=== PATIENT | male | born 1965 | race Caucasian/White ===

== ENCOUNTER 2017-06-08 02:18 | Inpatient (IN) | payer MEDICARE, SELFPAY ==
[2017-06-08] VITALS (16 sets, daily range): BP systolic 117–155; BP diastolic 73–98; PULSE 91–107; RESP 12–20; TEMP 36.6–37.6; O2SAT 93–98; BMI 26.2
--- NOTE | 2017-06-08 02:37 | EKG12_ITS ---
Test Reason : Blood Pressure : / mmHG Vent. Rate : 104 BPM Atrial Rate : 104 BPM P-R Int : 148 ms QRS Dur : 106 ms QT Int : 344 ms P-R-T Axes : 045 051 038 degrees QTc Int : 452 ms Sinus tachycardia Nonspecific T wave abnormality Confirmed by ESAU LEIGH, ANGELICA ([id number]), staff editor ALMA BAKER ([id number] on 06/10/2017 1:17:27 PM Referred By: Confirmed By:ANGELICA CIFUENTES MD
--- NOTE | 2017-06-08 02:38 | CT_ITS ---
STUDY: CTA CHEST REASON FOR EXAM: Male, 51 years old. Chest pain since 10:00 PM. Mediport was placed on 06/07/2017 and the patient has been off anticoagulants for 2 days due to port insertion. History of recent PE. 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 Hypertension. Elevated white blood cell count today. RADIATION DOSAGE (If Supplied By Facility): CTDIvol = ( 19.64 ) mGy, DLP = ( 2018.20 ) mGycm TECHNIQUE: The examination was performed with the intravenous administration of 75ML ml of Isovue 370 contrast material. Post-processing of the angiographic images was performed, with multiplanar reformation and 3D reconstruction. Individualized dose optimization techniques were used for this CT. COMPARISON: Chest x-ray 06/07/2017. CT scan chest 05/29/2017. CTA chest 04/27/2017. FINDINGS: There is a right internal jugular Port-A-Cath with its tip in the SVC-right atrial junction. There is subcutaneous fat infiltration in the right anterior chest wall and lower right side of the neck, presumably related to recent port placement. Normal enhancement of the main pulmonary artery and right and left pulmonary arteries. Normal enhancement of the bilateral peripheral pulmonary arteries. There is no demonstrated pulmonary embolism. Normal thoracic aorta and visualized great vessels. There is no demonstrated aortic dissection. Normal heart and pericardium. Normal mediastinum. Normal hilar regions. Normal visualized trachea.. There are large pleural effusions bilaterally, which are worsened compared with the May [address] scan. There is overlying compression atelectasis in the lower lobes bilaterally. There are infiltrates and atelectasis in the right middle lobe and right upper lobe which are likely represent pneumonia. Bronchial wall thickening is similar regions. . Appearance of the right upper and right middle lobe infiltrates is is not significantly different from May 29 exam. Normal chest wall structures. There are degenerative changes of thoracic spine. Abdominal findings will be discussed in CT scan abdomen and pelvis report. CT/CTA Chest W/WO Contrast IMPRESSION: Normal CTA chest examination, without a demonstrated pulmonary embolism or arterial dissection. Port-A-Cath is in adequate position, with its tip in the SVC-right atrial junction. Large bilateral pleural effusions, with interval worsening from May 29 exam, and with overlying atelectasis in the lower lobes. Right upper lobe and right middle lobe pneumonia and atelectasis, not significant change from May 29 exam. Electronically Signed: Eulalio Souza MD at 5:21 EST , Service support ,
--- NOTE | 2017-06-08 02:38 | CT_ITS ---
STUDY: CT ABDOMEN AND PELVIS WITH CONTRAST REASON FOR EXAM: Male, 51 years old. Chest pain since 10:00 PM. Mediport was placed on 06/07/2017 and the patient has been off anticoagulants for 2 days due to port insertion. History of recent PE. 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 Hypertension. Elevated white blood cell count today. RADIATION DOSAGE (If Supplied By Facility): CTDIvol = ( 19.64 ) mGy, DLP = ( 2018.20 ) mGycm TECHNIQUE: Transaxial images were obtained from the dome of the diaphragm to the symphysis pubis without oral contrast. 75ML ml of Isovue 370 contrast was administered. Sagittal and coronal images were reconstructed. Individualized dose optimization techniques were used for this CT. COMPARISON: CTA chest done today. CT scan abdomen and pelvis 05/29/2017. FINDINGS: Lower lung field findings were discussed in CTA chest report... There is moderate abdominal and pelvic ascites, slightly worsened, particularly in the pelvis, compared to May 29 exam. There is a a percutaneous biliary drain which extends through the right lobe of the liver, with its curled tip in the second segment of the duodenal sweep. There is associated pneumobilia. Liver is otherwise normal in appearance. There is high attenuation material within the gallbladder, consistent with excreted contrast. Normal spleen. Normal pancreas. Normal bilateral adrenal glands. Normal right kidney. Contrast enhancement of the left renal cortex is slightly heterogeneous, particularly within the upper pole of the left kidney. Findings nonspecific, however, it may be associated with pyelonephritis. There is no demonstrated hydronephrosis or urinary calculus. Normal visualized stomach. Normal small intestine. Normal colon. The appendix is visualized medial to the cecum on axial images 69-77 and it appears normal.. There is minimal atherosclerotic calcification of the abdominal aorta, without a demonstrated aneurysm. Normal inferior vena cava. Normal retroperitoneum. Normal urinary bladder. Normal abdominal wall. There is a small umbilical hernia containing fat, but no bowel. CT/Abdomen/Pelvis W IV Cont ONLY IMPRESSION: Mild heterogeneity of cortical contrast enhancement in the upper pole of the left kidney is a nonspecific finding, possibly representing pyelonephritis. Suggest laboratory correlation. No demonstrated urinary calculi or hydronephrosis. Percutaneous biliary drain/biliary stent is in adequate position. No bile duct dilatation. Moderate amount of ascites, slightly worsened from previous CT scan. No evidence for diverticulitis or appendicitis. Electronically Signed: Eulalio Souza MD at 5:33 EST , Service support ,
[2017-06-08] MEDS: 0.9% Normal Saline 1,000 ML 150 ML IV (02:46)
[2017-06-08 03:10] LABS: Absolute Lymphocyte Count 0.38 X10^3/ul (0.83-4.51); Absolute Neutrophil Count 10.1 X10^3/uL (2.0-7.7); Basophil# 0.01 X10^3/uL; Basophil% 0.1 % (0-1); Eosinophil# 0.04 X10^3/uL; Eosinophils% 0.3 % (0-5); Hematocrit 30.3 % (40-54); Hemoglobin 9.8 g/dl (13.0-16.5); International Normalized Ratio 1.1; Lymphocyte # 0.38 X10^3/ul (4.0); Lymphocyte % 3.3 % (19-41); Mean Corp Hgb Conc 32.3 g/gl (32-36); Mean Corpuscular Hgb 28.2 pg (27.0-32.0); Mean Corpuscular Volume 87.3 fL (80-94); Mean Platelet Vol. 10.6 fl (6.2-12.0); Monocyte# 1.04 X10^3/uL; Monocyte% 8.9 % (0-10); Neutrophil # 10.13 X10^3/uL (2.7-7.7); Neutrophil % 87.1 % (47-70); Platelet Count 218 K/mm3 (150-450); Prothrombin Time (Protime)PT. 13.9 SECONDS (11.7-14.9); RBC Distribution Width CV 16.1 % (11.6-14.6); RBC Distribution Width SD 51.4 fl (35.1-43.9); Red Blood Count 3.47 M/mm3 (4.6-6.2); White Blood Count 11.6 K/mm3 (4.4-11.0)
[2017-06-08 03:11] LABS: Differential Indicated SCAN CRITERIA MET; POSITIVE COUNT NO; POSITIVE DIFFERENTIAL YES; POSITIVE MORPHOLOGY NO; Partial Thromboplast Time 34.9 Seconds (24.1-36.2)
[2017-06-08 03:19] LABS: AST(SGOT) 18 U/L (15-37); Alanine Aminotransfer ALT/SGPT 38 U/L (12-78); Albumin, Serum 2.8 g/dL (3.4-5.0); Alkaline Phosphatase 414 U/L (45-117); Anion Gap 10 (5-15); BUN 9 mg/dL (7-18); BUN/Creat Ratio 9.8 RATIO (10-20); Bilirubin, Direct 0.47 mg/dL (0.00-0.30); Calcium,Total 8.6 mg/dL (8.5-10.1); Chloride 99 mmol/L (98-107); Creatinine, Serum 0.92 mg/dL (0.70-1.30); EST Glomerular Filtration Rate 92 mL/min (>60); Est Glom Filt Rate - Afr Amer 111 mL/min (>60); Globulin 3.7 g/dL (2.2-4.2); Glucose 166 mg/dL (70-110); Lipase 844 U/L (73-393); Potassium 3.9 mmol/L (3.5-5.1); Protein, Total 6.5 g/dL (6.4-8.2); Sodium Level 134 mmol/L (136-145)
[2017-06-08] MEDS: fentaNYL 100 MCG/2 ML Ampul 50 MCG IV (04:15)
--- NOTE | 2017-06-08 06:08 | ED.VISSUMM ---
- ER Visit Summary Date of Service: 06/08/17 Chief Complaint: Chest pain, abdominal pain History of Present Illness: The patient is a 51 M sudden chest upper abdominal pain at 10 PM this evening. Currently symptoms in the abdomen. History of recurrent oropharyngeal cancer 2 weeks ago. Recently discharged from [facility] with a percutaneous biliary tube placement. An obstructive process causing jaundice. Spouse states attempted ERCP done at [facility], unable due to finding cancer lesions in his esophagus. Percutaneous tube was placed. Denies any fevers. Patient status post Mediport placement yesterday here by Dr. Olguin. History of PE, currently off his Lovenox, to be restarted tomorrow. Call the on-call oncologist, symptom here for evaluation. States symptoms are not severe currently however it can get really severe any time. No vomiting or diarrhea. Denies urinary symptoms. Spouse does state he feels he is having increased distention in his abdomen. Physical Examination: General: Alert and oriented ?3, mild distress HEENT: Normocephalic, atraumatic. Moist mucosa membranes Neck: supple, nontender. Cardiovascular: Regular rate and rhythm, no murmurs. Right upper chest MediPort: Clean, dry, intact. Respiratory: Normal breath sounds, symmetric, no distress Abdomen: Soft, nontender, right abdomen: Percutaneous tube clean, dry, intact. Extremities: Nontender, no edema, pulses intact ?4 Neuro: no focal neurological deficits. Skin: Mild jaundice Test Results: EKG sinus rate of 104, no ST or T-wave changes. Troponin negative. Abdominal labs, WBC 11.6. Hemoglobin 9.8. Creatinine 0.92. Lipase 844. Liver enzymes normal. CTA chest: Increased pleural effusion. No PE. Stable infiltrates as from previous. CT abdomen pelvis: Increased ascites. Biliary tube in place. Inflammation around left kidney. Emergency Department Course and Treatment: Patient vitals stable, complains of both chest pain and abdominal pain. Chest pain has resolved. Patient off Lovenox for Mediport placement. Percutaneous drainage tube placed at [facility] recently. With his symptoms, discuss reimaging to rule out PE versus tube dislodgment. Scans noted increasing pleural effusion. He has had 2 thoracentesis 2-3 weeks ago. Complains of dyspnea, however pulse ox is stable currently. CT abdomen no increased ascites. Percutaneous tube is in place. Noted some inflammation around the left kidney. No urine symptoms. I did send for a UA for further evaluation. Abdominal labs did note elevated lipase of 844. No inflammation around the pancreas on CT. Cardiac workup negative. I discussed with oncology, Dr. Munoz, knows the patient well. States from the recent attempted ERCP, there is a new primary lesion in the esophagus. Patient's chemotherapy will need to be changed. Initial plan will be Saturday, however she states this can be done as an inpatient here if patient stays longer. She requests him staying here to hospitalist service with pulmonary consult for evaluation of pleural effusions. Due to being Saturday morning, unclear if thoracentesis can be performed, currently he is off Lovenox to be restarted today. Reevaluation patient feels more comfortable. Currently hospitalist is on page for discussion for admission. I did speak with hospitalist, Dr. Crawford, Dr. Carlson, request I speak with Dr. Bull about possible Pleuridex cath. He was in surgery. Updated on recurrent pleural effusions. He agrees to see the patient for evaluation as an inpatient. Treatment Plan: [] Disposition: Admission Impression: 1. Abdominal pain 2. Abdominal ascites 3. Bilateral pleural effusions 4. Recurrent oral pharyngeal cancer This note was generated with [employer] dictation software. It may contain incorrect words, spelling, and punctuation that were not noted in review of the chart prior to signing ED Disposition - Plan for ED Patient: Disposition: Acute Care Hospital [facility] Chief Complaint: Chest Pain Diagnosis: Abdominal pain, Ascites, Bilateral pleural effusion, Recurrent cancer Referrals: Rhoda Madera MD [Primary Care Provider] -
[2017-06-08 06:13] LABS: Mucous, Urine 0 SEEN /hpf (<or=2+); Red Blood Cells-Urine 0 SEEN /hpf (0-5); White Blood Cells 0 SEEN /hpf (0-5)
[2017-06-08 06:14] LABS: Color, Urine Straw (Yellow); Glucose, Dipstick Normal (Normal); Ketone-Dipstick Negative (Negative); Leukocyte Esterase-Dipstick Negative /ul (Negative); Nitrite-Dipstick Negative (Negative); Occult Blood-Urine Negative /ul (Negative); Protein-Dipstick Negative (Negative); Specific Gravity, Urine 1.005 (1.002-1.030); Urine Bilirubin Dipstick Negative (Negative); Urine Clarity Clear (Clear); Urine Urobilinogen Normal (Normal)
--- NOTE | 2017-06-08 06:25 | ED.DCSUM_ITS ---
- ER Visit Summary Date of Service: 06/08/17 Chief Complaint: Chest pain, abdominal pain History of Present Illness: The patient is a 51 M sudden chest upper abdominal pain at 10 PM this evening. Currently symptoms in the abdomen. History of recurrent oropharyngeal cancer 2 weeks ago. Recently discharged from [facility] with a percutaneous biliary tube placement. An obstructive process causing jaundice. Spouse states attempted ERCP done at [facility], unable due to finding cancer lesions in his esophagus. Percutaneous tube was placed. Denies any fevers. Patient status post Mediport placement yesterday here by Dr. Olguin. History of PE, currently off his Lovenox, to be restarted tomorrow. Call the on -call oncologist, symptom here for evaluation. States symptoms are not severe currently however it can get really severe any time. No vomiting or diarrhea. Denies urinary symptoms. Spouse does state he feels he is having increased distention in his abdomen. Physical Examination: General: Alert and oriented ?3, mild distress HEENT: Normocephalic, atraumatic. Moist mucosa membranes Neck: supple, nontender. Cardiovascular: Regular rate and rhythm, no murmurs. Right upper chest MediPort : Clean, dry, intact. Respiratory: Normal breath sounds, symmetric, no distress Abdomen: Soft, nontender, right abdomen: Percutaneous tube clean, dry, intact. Extremities: Nontender, no edema, pulses intact ?4 Neuro: no focal neurological deficits. Skin: Mild jaundice Test Results: EKG sinus rate of 104, no ST or T-wave changes. Troponin negative. Abdominal labs, WBC 11.6. Hemoglobin 9.8. Creatinine 0.92. Lipase 844. Liver enzymes normal. CTA chest: Increased pleural effusion. No PE. Stable infiltrates as from previous. CT abdomen pelvis: Increased ascites. Biliary tube in place. Inflammation around left kidney. Emergency Department Course and Treatment: Patient vitals stable, complains of both chest pain and abdominal pain. Chest pain has resolved. Patient off Lovenox for Mediport placement. Percutaneous drainage tube placed at [facility] recently. With his symptoms, discuss reimaging to rule out PE versus tube dislodgment. Scans noted increasing pleural effusion. He has had 2 thoracentesis 2-3 weeks ago. Complains of dyspnea, however pulse ox is stable currently. CT abdomen no increased ascites. Percutaneous tube is in place. Noted some inflammation around the left kidney. No urine symptoms. I did send for a UA for further evaluation. Abdominal labs did note elevated lipase of 844. No inflammation around the pancreas on CT. Cardiac workup negative. I discussed with oncology, Dr. Munoz, knows the patient well. States from the recent attempted ERCP, there is a new primary lesion in the esophagus. Patient's chemotherapy will need to be changed. Initial plan will be Saturday, however she states this can be done as an inpatient here if patient stays longer. She requests him staying here to hospitalist service with pulmonary consult for evaluation of pleural effusions. Due to being Saturday morning, unclear if thoracentesis can be performed, currently he is off Lovenox to be restarted today. Reevaluation patient feels more comfortable. Currently hospitalist is on page for discussion for admission. I did speak with hospitalist, Dr. Crawford, Dr. Carlson, request I speak with Dr. Bull about possible Pleuridex cath. He was in surgery. Updated on recurrent pleural effusions. He agrees to see the patient for evaluation as an inpatient. Treatment Plan: [] Disposition: Admission Impression: 1. Abdominal pain 2. Abdominal ascites 3. Bilateral pleural effusions 4. Recurrent oral pharyngeal cancer This note was generated with [employer] dictation software. It may contain incorrect words, spelling, and punctuation that were not noted in review of the chart prior to signing ED Disposition - Plan for ED Patient: Disposition: Acute Care Hospital [facility] Chief Complaint: Chest Pain Diagnosis: Abdominal pain, Ascites, Bilateral pleural effusion, Recurrent cancer Referrals: Rhoda Madera MD [Primary Care Provider] -
[2017-06-08 06:28] LABS: Bacteria RARE /hpf (None Seen); Squamous Epithelial Cells - UA 0-5 SEEN /hpf (0-5)
--- NOTE | 2017-06-08 07:40 | NURSING ---
called in with concerns that pt has been forgetful. wanted staff to know that pt has not been eating and does not remember all medical hx and facts, symptoms. Concerned about j-tube and treatments that effect liver. requests updates regarding care when she is unable to be here. verified with pt who reports me and my morphine brain has trouble remembering, and would like staff to keep Cici updated and in decision making process. called PCU to update nurse with family concerns
--- NOTE | 2017-06-08 07:53 | PCM.HP.STD ---
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 Comment: from head and neck CA at the base of the tongue (3) Normochromic normocytic anemia Status: Chronic Comment: secondary to malignancy (4) Hyponatremia Status: Acute (5) Biliary stasis Status: Chronic Comment: has a KOBE drain (6) Abdominal pain Status: Acute (7) Ascites Status: Chronic (8) Bilateral pleural effusion Status: Chronic Comment: malignant, recurrent (9) Pneumonia Status: Acute Qualifiers: Pneumonia type: aspiration pneumonia (10) Bipolar affective disorder Status: Chronic (11) Diabetes mellitus, type II Status: Chronic (12) Hypothyroidism Status: Chronic Qualifiers: History of Present Illness Date of Admission: 06/08/17 Chief Complaint: upper abdominal pain The patient is a 51 year old M with a past medical history of squamous cell carcinoma at the base of the tongue with recent recurrence in the esophagus, bipolar disorder, hypertension, recurrent bilateral pleural effusions(malignant), ascites(KOBE drain recently placed at [facility]), dysphagia, PE's(on Lovenox), and DM II who presented to the ER at [facility] on 06/08/17 with a complaint of upper abdominal pain and lower chest pain. He did not take his temperature at home but felt very cold and needed several blankets to keep him warm. Vital signs at presentation to the emergency room are 99.6 temp, heart rate 107, blood pressure 146/96, respiratory rate 20 and he was 94-95% saturated on room air. White blood cell count is 11.6 with left shift. Hemoglobin is 9.8 and in April 2017 it was 12.8. Platelets are within normal limits. Sodium was low at 134 but the remainder of the electrolytes are normal. BUN is 9 with a creatinine of 0.92. Blood sugar is 166. UA was negative for infection. He was recently at [facility] for an ERCP however endoscopy revealed metastatic cancer to the esophagus and ERCP was aborted. He has a KOBE drain in the abdomen which has a very small amount of dark brown fluid. His states that this is what has been there for 3 days. She does state his abdomen is is slightly smaller than it was prior to the trip to [facility]. He had a port placed in the right subclavian by Dr. Olguin on 06/07/2017. CT scan of the abdomen showed a percutaneous biliary drain/biliary stent in good position with no bile duct dilatation. There was a moderate amount of ascites, slightly worsened from previous CT scan at [facility]. CTA of the chest showed no pulmonary embolism but showed large pleural effusions bilaterally, worse than a CT scan done on May 29. There was compression atelectasis in both lower lobes and infiltrates in the right middle lobe and the right upper lobe likely secondary to aspiration. He is being admitted to the hospital for probable ASP PNA, and large recurrent BL effusions, likely malignant. Thoracentesis in April had atypical squamous cells. 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 (Chronic) from head and neck CA at the base of the tongue Normochromic normocytic anemia (Chronic) secondary to malignancy Biliary stasis (Chronic) has a KOBE drain Diabetes mellitus, type II (Chronic) Bipolar affective disorder (Chronic) Hypothyroidism (Chronic) Allergies No Known Allergies Allergy (Verified 06/08/17 02:29) Home Medications: Ambulatory Orders Medication Instructions Recorded Citalopram [Celexa] 20 mg PO DAILY 09/20/14 Levothyroxine [Synthroid] 125 mcg PO DAILY 09/20/14 Quetiapine Fumarate [Seroquel] 200 mg PO QHS 08/15/16 Oxcarbazepine [Trileptal] 300 mg PO BID 02/14/17 Amlodipine [Norvasc] 10 mg PO DAILY #30 tab 05/01/17 Dexamethasone [Decadron] 4 mg PO DAILY@0800 #30 tab 05/14/17 Bisacodyl [Dulcolax] 10 mg RECTAL DAILY PRN PRN 05/29/17 Docusate Sodium [Stool Softener] 100 mg PO BID PRN PRN 05/29/17 Enoxaparin [Lovenox] 80 mg SQ BID 05/29/17 Lactulose [Constulose] 10 gm PO TID 06/03/17 Lidocaine/Prilocaine 30 gm TP DAILY PRN PRN #1 cream..g. 06/05/17 [Lidocaine-Prilocaine Cream] Wade Citrate [Wade] 5 ml PO DAILY 06/06/17 Oxycodone HCl/Acetaminophen 1 - 2 tab PO Q4H PRN PRN #30 tab 06/07/17 [Percocet 5/325] Paliperidone [Paliperidone ER] 1.5 mg PO DAILY 06/08/17 Pantoprazole Sodium [Protonix] 40 mg PO DAILY 06/08/17 Surgical History: - - Port placement, Neck Bx, T+A, Inguinal hernia repair, PEG tube. Psychiatric History: Bipolar Lives: Spouse/ Significant Other Smoking Status: Former smoker Tobacco Use: Non-smoker Alcohol: Rare Drugs: None - *Family History Maternal Family History: Family History (Last Reviewed 06/09/17 @ 23:04 by Arabella Carlson DO) Grandfather Heart disease Brother CVA (cerebral vascular accident) Mother Hypertension History Items: Heart Disease, Hypertension, No pertinent history Paternal Family History: Family History (Last Reviewed 06/09/17 @ 23:04 by Arabella Carlson DO) Grandfather Heart disease Brother CVA (cerebral vascular accident) Mother Hypertension History Items: Heart Disease, Hypertension, Stroke Review of Systems Constitutional: Reports: Chills Eyes: Denies: Blurred vision, Redness HEENT: Reports: Difficulty Swallowing. Denies: Head Aches, Sinus Congestion, Sinus Drainage Cardiovascular: Reports: Chest Pain - lower chest BL and upper abd, Orthopnea. Denies: Light Headedness, Palpitations, Paroxysmal Noc. Dyspnea, Syncope Respiratory: Reports: Cough - thick yellow, Shortness of breath upon exertion, Sputum production. Denies: Hemoptysis, Wheezing Gastrointestinal: Denies: Abdominal Pain, Diarrhea, Nausea, Vomiting Genitourinary: Denies: Dysuria Musculoskeletal: Denies: Joint Pain, Joint Tenderness Skin: Denies: Jaundice, Wounds Neurological: Denies: Slurred speech, Confusion, Difficulty swallowing, Focal weakness, Numbness, Tingling, Seizures Psychiatric: Reports: - - bipolar disorder Endocrine: Reports: - - hypothyroidism Hematologic/ Lymphatic: Reports: Hx of blood clot VTE Information - Inpt Only VTE Present on Admission: No VTE Mechan Device Prophylaxis: SCD's, Knee High CHRISTIANO Hose Reason prophylaxis not ordered:: Treatment Not Indicated - on full dose Lovenox Patient Problems: Active and Suspected Problems (Last Reviewed 06/09/17 @ 08:45 by Segun Ramirez MD) Abdominal pain (Acute) Hyponatremia (Acute) - Physical Exam General: Alert, Oriented x3, Cooperative HEENT: Atraumatic, PERRLA, EOMI, Normocephalic Oral: Moist Mucosa Neck: Supple, No JVD, No Nodes, No Nuchal Rigidity, Trachea Midline Lungs: No rhonchi, No wheeze, No rales, Diminished, - - not tachypneic and no conversational dyspnea, able to speak in full sentences Cardiovascular: Regular rate, Regular Rhythm, Normal S1, Normal S2, No murmurs, No Ectopic Activity, No rub noted, No Gallop Abdomen: Bowel Sounds Present, Soft, Distended, Tender - in the upper abd BL with no guarding., - - No pitting edema in the flanks Extremities: No clubbing, No cyanosis, Capillary Refill Less than 3 Seconds, Edema - mild distal LE's Skin: No rashes, No breakdown, - - port is present in the R upper chest Musculoskeletal: No Muscle Wasting Lymphatic: - - No supraclavicular adenopathy Neurological: Cranial nerves II-XII grossly intact, Neuro grossly intact Psych/Mental Status: Normal Affect, Appropriate Vital Signs Temp Pulse Resp BP Pulse Ox 99.6 F H 96 14 155/96 H 94 06/08/17 02:24 06/08/17 07:28 06/08/17 07:28 06/08/17 07:28 06/08/17 07:28 Oxygen Delivery Method Room Air Assessment/Plan Active and Suspected Problems (Last Reviewed 06/09/17 @ 08:45 by Segun Ramirez MD) Abdominal pain (Acute) Hyponatremia (Acute) Vancomycin and cefepime day #2 Impressions 1. Aspiration PNA - Continue 2. dysphagia 3. H&N squamous CA at the base of the tongue diagnosed and treated in 2015 and nowq with recurrence in the esophagus 4. ascites - suspect malignant. Had a drain recently put in at [facility] but there is no significant drainage and the ABD is more distended and tense today 5. Recurrent BL pleural effusions, R>L. Atypical squamous cells in the first thoracentesis. Has had [address] Ramirez is on consult and is planning a pleurx catheter Saturday.......should probably have a diagnostic and therapeutic paracentesis and a PEG as well. 6. BPD - complicates care, management, prognosis and recovery 7. anemia of malignancy 8. former smoker 9. Hyponatremia 10. DM II 11. Hypothyroidism As above Will need to consult Dr. Galvin who is following this pt and he is going to be getting more chemo which may be started in the hospital [facility] and keep NPO until he is seen by [facility] IV hydration and DC if the ST starts a diet to prevent increasing pleural effusions or ascites. May need a diagnostic paracentesis if this has not already been done and may also need to have another PEG if he is unable to tolerate a diet due to dysphagia and chemo Will consult Dr. Ramirez for a pleurx catheter to control the pleural effusion Code Visit Inpatient E&M: 69627 Subs Hosp L3
--- NOTE | 2017-06-08 08:03 | HP.PCM_ITS ---
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 Comment: from head and neck CA at the base of the tongue (3) Normochromic normocytic anemia Status: Chronic Comment: secondary to malignancy (4) Hyponatremia Status: Acute (5) Biliary stasis Status: Chronic Comment: has a KOBE drain (6) Abdominal pain Status: Acute (7) Ascites Status: Chronic (8) Bilateral pleural effusion Status: Chronic Comment: malignant, recurrent (9) Pneumonia Status: Acute Qualifiers: Pneumonia type: aspiration pneumonia (10) Bipolar affective disorder Status: Chronic (11) Diabetes mellitus, type II Status: Chronic (12) Hypothyroidism Status: Chronic Qualifiers: History of Present Illness Date of Admission: 06/08/17 Chief Complaint: upper abdominal pain The patient is a 51 year old M with a past medical history of squamous cell carcinoma at the base of the tongue with recent recurrence in the esophagus , bipolar disorder, hypertension, recurrent bilateral pleural effusions( malignant), ascites(KOBE drain recently placed at [facility]), dysphagia, PE's(on Lovenox ), and DM II who presented to the ER at [facility] on 06/08/17 with a complaint of upper abdominal pain and lower chest pain. He did not take his temperature at home but felt very cold and needed several blankets to keep him warm. Vital signs at presentation to the emergency room are 99.6 temp, heart rate 107, blood pressure 146/96, respiratory rate 20 and he was 94-95% saturated on room air. White blood cell count is 11.6 with left shift. Hemoglobin is 9.8 and in April 2017 it was 12.8. Platelets are within normal limits. Sodium was low at 134 but the remainder of the electrolytes are normal. BUN is 9 with a creatinine of 0.92. Blood sugar is 166. UA was negative for infection. He was recently at [facility] for an ERCP however endoscopy revealed metastatic cancer to the esophagus and ERCP was aborted. He has a KOBE drain in the abdomen which has a very small amount of dark brown fluid. His states that this is what has been there for 3 days. She does state his abdomen is is slightly smaller than it was prior to the trip to [facility]. He had a port placed in the right subclavian by Dr. Olguin on 06/07/2017. CT scan of the abdomen showed a percutaneous biliary drain/biliary stent in good position with no bile duct dilatation. There was a moderate amount of ascites, slightly worsened from previous CT scan at [facility]. CTA of the chest showed no pulmonary embolism but showed large pleural effusions bilaterally, worse than a CT scan done on May 29. There was compression atelectasis in both lower lobes and infiltrates in the right middle lobe and the right upper lobe likely secondary to aspiration. He is being admitted to the hospital for probable ASP PNA, and large recurrent BL effusions, likely malignant. Thoracentesis in April had atypical squamous cells. 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 (Chronic) from head and neck CA at the base of the tongue Normochromic normocytic anemia (Chronic) secondary to malignancy Biliary stasis (Chronic) has a KOBE drain Diabetes mellitus, type II (Chronic) Bipolar affective disorder (Chronic) Hypothyroidism (Chronic) Allergies No Known Allergies Allergy (Verified 06/08/17 02:29) Home Medications: Ambulatory Orders Medication Instructions Recorded Citalopram [Celexa] 20 mg PO DAILY 09/20/14 Levothyroxine [Synthroid] 125 mcg PO DAILY 09/20/14 Quetiapine Fumarate [Seroquel] 200 mg PO QHS 08/15/16 Oxcarbazepine [Trileptal] 300 mg PO BID 02/14/17 Amlodipine [Norvasc] 10 mg PO DAILY #30 tab 05/01/17 Dexamethasone [Decadron] 4 mg PO DAILY@0800 #30 tab 05/14/17 Bisacodyl [Dulcolax] 10 mg RECTAL DAILY PRN PRN 05/29/17 Docusate Sodium [Stool Softener] 100 mg PO BID PRN PRN 05/29/17 Enoxaparin [Lovenox] 80 mg SQ BID 05/29/17 Lactulose [Constulose] 10 gm PO TID 06/03/17 Lidocaine/Prilocaine 30 gm TP DAILY PRN PRN #1 cream..g. 06/05/17 [Lidocaine-Prilocaine Cream] [place] Citrate [[place]] 5 ml PO DAILY 06/06/17 Oxycodone HCl/Acetaminophen 1 - 2 tab PO Q4H PRN PRN #30 tab 06/07/17 [Percocet 5/325] Paliperidone [Paliperidone ER] 1.5 mg PO DAILY 06/08/17 Pantoprazole Sodium [Protonix] 40 mg PO DAILY 06/08/17 Surgical History: - - Port placement, Neck Bx, T+A, Inguinal hernia repair, PEG tube. Psychiatric History: Bipolar Lives: Spouse/ Significant Other Smoking Status: Former smoker Tobacco Use: Non-smoker Alcohol: Rare Drugs: None - *Family History Maternal Family History: Family History (Last Reviewed 06/09/17 @ 23:04 by Arabella Carlson DO) Grandfather Heart disease Brother CVA (cerebral vascular accident) Mother Hypertension History Items: Heart Disease, Hypertension, No pertinent history Paternal Family History: Family History (Last Reviewed 06/09/17 @ 23:04 by Arabella Carlson DO) Grandfather Heart disease Brother CVA (cerebral vascular accident) Mother Hypertension History Items: Heart Disease, Hypertension, Stroke Review of Systems Constitutional: Reports: Chills Eyes: Denies: Blurred vision, Redness HEENT: Reports: Difficulty Swallowing. Denies: Head Aches, Sinus Congestion, Sinus Drainage Cardiovascular: Reports: Chest Pain - lower chest BL and upper abd, Orthopnea. Denies: Light Headedness, Palpitations, Paroxysmal Noc. Dyspnea, Syncope Respiratory: Reports: Cough - thick yellow, Shortness of breath upon exertion, Sputum production. Denies: Hemoptysis, Wheezing Gastrointestinal: Denies: Abdominal Pain, Diarrhea, Nausea, Vomiting Genitourinary: Denies: Dysuria Musculoskeletal: Denies: Joint Pain, Joint Tenderness Skin: Denies: Jaundice, Wounds Neurological: Denies: Slurred speech, Confusion, Difficulty swallowing, Focal weakness, Numbness, Tingling, Seizures Psychiatric: Reports: - - bipolar disorder Endocrine: Reports: - - hypothyroidism Hematologic/ Lymphatic: Reports: Hx of blood clot VTE Information - Inpt Only VTE Present on Admission: No VTE Mechan Device Prophylaxis: SCD's, Knee High CHRISTIANO Hose Reason prophylaxis not ordered:: Treatment Not Indicated - on full dose Lovenox Patient Problems: Active and Suspected Problems (Last Reviewed 06/09/17 @ 08:45 by Segun Ramirez MD) Abdominal pain (Acute) Hyponatremia (Acute) - Physical Exam General: Alert, Oriented x3, Cooperative HEENT: Atraumatic, PERRLA, EOMI, Normocephalic Oral: Moist Mucosa Neck: Supple, No JVD, No Nodes, No Nuchal Rigidity, Trachea Midline Lungs: No rhonchi, No wheeze, No rales, Diminished, - - not tachypneic and no conversational dyspnea, able to speak in full sentences Cardiovascular: Regular rate, Regular Rhythm, Normal S1, Normal S2, No murmurs, No Ectopic Activity, No rub noted, No Gallop Abdomen: Bowel Sounds Present, Soft, Distended, Tender - in the upper abd BL with no guarding., - - No pitting edema in the flanks Extremities: No clubbing, No cyanosis, Capillary Refill Less than 3 Seconds, Edema - mild distal LE's Skin: No rashes, No breakdown, - - port is present in the R upper chest Musculoskeletal: No Muscle Wasting Lymphatic: - - No supraclavicular adenopathy Neurological: Cranial nerves II-XII grossly intact, Neuro grossly intact Psych/Mental Status: Normal Affect, Appropriate Vital Signs Temp Pulse Resp BP Pulse Ox 99.6 F H 96 14 155/96 H 94 06/08/17 02:24 06/08/17 07:28 06/08/17 07:28 06/08/17 07:28 06/08/17 07:28 Oxygen Delivery Method Room Air Assessment/Plan Active and Suspected Problems (Last Reviewed 06/09/17 @ 08:45 by Segun Ramirez MD) Abdominal pain (Acute) Hyponatremia (Acute) Vancomycin and cefepime day #2 Impressions 1. Aspiration PNA - Continue 2. dysphagia 3. H&N squamous CA at the base of the tongue diagnosed and treated in 2015 and nowq with recurrence in the esophagus 4. ascites - suspect malignant. Had a drain recently put in at [facility] but there is no significant drainage and the ABD is more distended and tense today 5. Recurrent BL pleural effusions, R>L. Atypical squamous cells in the first thoracentesis. Has had [address] Ramirez is on consult and is planning a pleurx catheter Saturday.......should probably have a diagnostic and therapeutic paracentesis and a PEG as well. 6. BPD - complicates care, management, prognosis and recovery 7. anemia of malignancy 8. former smoker 9. Hyponatremia 10. DM II 11. Hypothyroidism As above Will need to consult Dr. Galvin who is following this pt and he is going to be getting more chemo which may be started in the hospital [facility] and keep NPO until he is seen by [facility] IV hydration and DC if the ST starts a diet to prevent increasing pleural effusions or ascites. May need a diagnostic paracentesis if this has not already been done and may also need to have another PEG if he is unable to tolerate a diet due to dysphagia and chemo Will consult Dr. Ramirez for a pleurx catheter to control the pleural effusion Code Visit Inpatient E&M: 19561 Subs Hosp L3
[2017-06-08] MEDS: Lactated Ringers 1,000 ML 75 ML IV ×2 (09:01→23:01)
[2017-06-08] MEDS: Albuterol 2.5 MG/3 ML VIAL.NEB. INHALATION (09:08)
[2017-06-08 09:19] LABS: Hemoglobin A1c 5.3 % (4.2-6.3)
--- NOTE | 2017-06-08 09:19 | NURSING ---
Checked clinical pharmacology on Intr[employer]-no information available for compatibility of LR and Cefepime. Keiry -pharmacist verified the two drugs are complatible
[2017-06-08] MEDS: Enoxaparin 80 MG/0.8 ML Syringe SC ×2 (11:08→23:01)
[2017-06-08] MEDS: Bumetanide 1 MG/4 ML Vial IV (11:09)
--- NOTE | 2017-06-08 12:56 | CASEMGMT ---
Face to Face with patient for initial transition planning/care coordination assessment. RN CM introduced self and role at [facility], pt voices understanding and consents to assessment at this time. Care providers, pharmacy, and demographics verified. See attached link. Advised pt to ask for CM if questions/concerns/needs arise, voices understanding. PLAN: Patient states he would like to return home, with family, upon discharge. Patient states he lives in a two-story home with first floor setup. He has never used home health services in the past. Patient states they now have someone coming into the home to help with cooking and cleaning. Patient states his works from home now. DME: Patient states he currently has walker, cane, wheelchair and bath chair.
[2017-06-08] MEDS: Ipratropium/Albuterol Sulfate 3 ML AMPUL.NEB INHALATION (13:15)
[2017-06-08] MEDS: OXcarbazepine 150 MG Tablet 300 MG PO (23:02)
[2017-06-08] MEDS: Lactulose 20 GM/30 ML UDC 10 GM PO (23:02)
[2017-06-08] MEDS: Lidocaine 5% Patch 2 PATCH TOPICAL (23:06)
[2017-06-08] MEDS: Ondansetron 4 MG/2 ML Vial IV (23:11)
[2017-06-08] MEDS: 0.9% NaCl Peripheral Flush Adult/Peds IV (23:11)
[2017-06-09] VITALS (13 sets, daily range): BP systolic 124–155; BP diastolic 87–94; PULSE 80–102; RESP 16–18; TEMP 36.5–36.7; O2SAT 94–99
[2017-06-09] MEDS: 0.9% NaCl Peripheral Flush Adult/Peds IV (04:52)
[2017-06-09] MEDS: Albuterol 2.5 MG/3 ML VIAL.NEB. INHALATION (05:14)
[2017-06-09] MEDS: Lactulose 20 GM/30 ML UDC 10 GM PO ×3 (05:28→21:47)
[2017-06-09] MEDS: Levothyroxine 125 MCG Tablet PO (05:28)
[2017-06-09 07:11] LABS: M R Staph aureus DNA By PCR Negative (Negative); Probe Check PASS; Specimen Processing Control PASS
[2017-06-09] MEDS: Enoxaparin 80 MG/0.8 ML Syringe SC ×2 (09:34→21:46)
[2017-06-09] MEDS: Lithium Carbonate 300mg Capsule 300 MG PO (09:34)
[2017-06-09] MEDS: Citalopram 20 MG Tablet PO (09:35)
[2017-06-09] MEDS: OXcarbazepine 150 MG Tablet 300 MG PO ×2 (09:35→21:46)
[2017-06-09] MEDS: amLODIPine 10 MG Tablet PO (09:35)
[2017-06-09] MEDS: Bumetanide 1 MG/4 ML Vial IV (09:36)
[2017-06-09] MEDS: Ipratropium/Albuterol Sulfate 3 ML AMPUL.NEB INHALATION ×2 (11:08→19:41)
--- NOTE | 2017-06-09 11:15 | CON.PCM_ITS ---
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 The patient was initially diagnosed and treated in 2014. He now returns with multiple issues including bilateral pleural effusions. He was admitted by the medicine service. Dr. Carlson's admission history of present illness notes: The patient is a 51 year old M with a past medical history of squamous cell carcinoma at the base of the tongue with recent recurrence in the esophagus , bipolar disorder, hypertension, recurrent bilateral pleural effusions( malignant), ascites(KOBE drain recently placed at [facility]), dysphagia, PE's(on Lovenox ), and DM II who presented to the ER at [facility] on 06/08/17 with a complaint of upper abdominal pain and lower chest pain. He did not take his temperature at home but felt very cold and needed several blankets to keep him warm. Vital signs at presentation to the emergency room are 99.6 temp, heart rate 107, blood pressure 146/96, respiratory rate 20 and he was 94-95% saturated on room air. White blood cell count is 11.6 with left shift. Hemoglobin is 9.8 and in April 2017 it was 12.8. Platelets are within normal limits. Sodium was low at 134 but the remainder of the electrolytes are normal. BUN is 9 with a creatinine of 0.92. Blood sugar is 166. UA was negative for infection. He was recently at [facility] for an ERCP however endoscopy revealed metastatic cancer to the esophagus and ERCP was aborted. He has a KOBE drain in the abdomen which has a very small amount of dark brown fluid. His states that this is what has been there for 3 days. She does state his abdomen is is slightly smaller than it was prior to the trip to [facility]. He had a port placed in the right subclavian by Dr. Olguin on 06/07/2017. CT scan of the abdomen showed a percutaneous biliary drain/biliary stent in good position with no bile duct dilatation. There was a moderate amount of ascites, slightly worsened from previous CT scan at [facility]. CTA of the chest showed no pulmonary embolism but showed large pleural effusions bilaterally, worse than a CT scan done on May 29. There was compression atelectasis in both lower lobes and infiltrates in the right middle lobe and the right upper lobe likely secondary to aspiration. He is being admitted to the hospital for probable ASP PNA, and large recurrent BL effusions, likely malignant. Thoracentesis in April had atypical squamous cells. He has had 2 right-sided thoracenteses every 2 weeks on average, draining over thousand cc. He has increasing shortness of breath area did I am consulted for placement of a right tunneled pleural/Pleurx catheter. additionally, he underwent EGD with PEG tube placement by Dr. Katelynn Molina in 2014 while he was initially treated for his squamous cell head and neck cancer. He is again having increasing dysphagia. It was asked if I could attempt to place a PEG tube. We will attempt PEG tube placement. The same time as right tunneled pleural catheter placement, but this may not be possible given the aborted ERCP attempt at [facility]. 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 (Chronic) from head and neck CA at the base of the tongue Normochromic normocytic anemia (Chronic) secondary to malignancy Biliary stasis (Chronic) has a KOBE drain Diabetes mellitus, type II (Chronic) Bipolar affective disorder (Chronic) Hypothyroidism (Chronic) Allergies No Known Allergies Allergy (Verified 06/08/17 02:29) Home Medications: Ambulatory Orders Medication Instructions Recorded Citalopram [Celexa] 20 mg PO DAILY 09/20/14 Levothyroxine [Synthroid] 125 mcg PO DAILY 09/20/14 Quetiapine Fumarate [Seroquel] 200 mg PO QHS 08/15/16 Oxcarbazepine [Trileptal] 300 mg PO BID 02/14/17 Amlodipine [Norvasc] 10 mg PO DAILY #30 tab 05/01/17 Dexamethasone [Decadron] 4 mg PO DAILY@0800 #30 tab 05/14/17 Bisacodyl [Dulcolax] 10 mg RECTAL DAILY PRN PRN 05/29/17 Docusate Sodium [Stool Softener] 100 mg PO BID PRN PRN 05/29/17 Enoxaparin [Lovenox] 80 mg SQ BID 05/29/17 Lactulose [Constulose] 10 gm PO TID 06/03/17 Lidocaine/Prilocaine 30 gm TP DAILY PRN PRN #1 cream..g. 06/05/17 [Lidocaine-Prilocaine Cream] [place] Citrate [[place]] 5 ml PO DAILY 06/06/17 Oxycodone HCl/Acetaminophen 1 - 2 tab PO Q4H PRN PRN #30 tab 06/07/17 [Percocet 5/325] Paliperidone [Paliperidone ER] 1.5 mg PO DAILY 06/08/17 Pantoprazole Sodium [Protonix] 40 mg PO DAILY 06/08/17 Surgical History: - - Port placement, Neck Bx, T+A, Inguinal hernia repair, PEG tube. Psychiatric History: Bipolar Smoking Status: Former smoker - *Family History Maternal Family History: Family History (Last Reviewed 06/09/17 @ 08:45 by Segun Ramirez MD) Grandfather Heart disease Brother CVA (cerebral vascular accident) Mother Hypertension History Items: Heart Disease, Hypertension, No pertinent history Paternal Family History: Family History (Last Reviewed 06/09/17 @ 08:45 by Segun Ramirez MD) Grandfather Heart disease Brother CVA (cerebral vascular accident) Mother Hypertension History Items: Heart Disease, Hypertension, Stroke Review of Systems Constitutional: Reports: Anorexia, Malaise, Fatigue. Denies: Chills, Fever, Weight Change HEENT: Reports: Difficulty Swallowing, Dysphasia. Denies: Head Aches, Sinus Congestion, Sinus Drainage Cardiovascular: Denies: Chest Pain, Palpitations Respiratory: Reports: Shortness of Breath, Shortness of breath upon exertion. Denies: Cough, Shortness of breath at rest, Sputum production Gastrointestinal: Denies: Abdominal Pain, Nausea, Vomiting Genitourinary: Denies: Dysuria Musculoskeletal: Denies: Joint Pain, Joint Tenderness Skin: Denies: Rash, Wounds Neurological: Denies: Numbness, Tingling, Focal weakness Psychiatric: Denies: Anxiety, Depression, Homicidal Ideations, Suicidal Ideations Hematologic/ Lymphatic: Denies: Easy Bruising, Easy Bleeding Patient Problems: Active and Suspected Problems (Last Reviewed 06/09/17 @ 08:45 by Segun Ramirez MD) Abdominal pain (Acute) Hyponatremia (Acute) - Physical Exam General: Alert, Oriented x3, Cooperative Lungs: Diminished - 5. Basilar right greater than left Abdomen: Bowel Sounds Present, Soft, Non Tender Vital Signs Temp Pulse Resp BP Pulse Ox 97.9 F 95 16 126/94 H 97 06/09/17 08:19 06/09/17 08:19 06/09/17 08:19 06/09/17 08:19 06/09/17 08:19 Oxygen Flow Rate 2 Oxygen Delivery Method Nasal Cannula Weight: 78.2 kg Body Mass Index (BMI) 26.2 Intake and Output for Last 24 Hours 06/07/17 06/08/17 06/09/17 23:59 23:59 23:59 Intake Total 1478 / 1478 1992 Output Total 810 / 810 275 / 275 Balance 668 / 668 1718 / 1718 Microbiology Past 72 Hours 06/08/17 09:20 Gram Stain - Final Sputum, Expectorated/Coughed 06/08/17 09:00 Respiratory Panel (PCR) - Final Mucosa - Nasopharyngeal 06/08/17 09:00 Legionella Antigen - Final Urine, Clean Catch 06/08/17 09:00 Streptococcus pneumoniae Antigen (M - Final Urine, Clean Catch Laboratory Tests Past 24 Hrs 06/09/17 05:30 MRSA (PCR) Negative Assessment/Plan Active and Suspected Problems (Last Reviewed 06/09/17 @ 08:45 by Segun Ramirez MD) Abdominal pain (Acute) Hyponatremia (Acute) advanced metastatic squamous cell carcinoma with bilateral pleural effusions, biliary obstruction with what appears to be a percutaneous biliary stent placed , dysphagia, Bilateral pleural effusions-on CT scan. The right side appears worse than the left side. This is the site that the patient's had 2 previous thoracenteses. We'll plan for a right sided tunneled pleural catheter/Pleurx catheter for palliative reasons. The patient understands the risks, benefits, possible complications and alternatives to planned procedure, and patient consents. We will hold Lovenox after midnight. 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 dysphagia-prior PEG tube placement-questionable esophageal involvement-we will plan for upper endoscopy and attempt PEG tube placement through the old PEG tube site. If there is a degree of tumor in the esophagus which is preventing EGD placement, then we will recommend interventional radiology placed a feeding tube through her old PEG site.
[2017-06-09] MEDS: Lactated Ringers 1,000 ML 75 ML IV (12:03)
--- NOTE | 2017-06-09 12:45 | PCM.PROGNOTE ---
Patient Problems: Active and Suspected Problems (Last Reviewed 06/09/17 @ 08:45 by Segun Ramirez MD) Abdominal pain (Acute) Hyponatremia (Acute) Subjective: Patient is a 51-year-old male with a past medical history of head and neck cancer at the base of the tongue treated in 2015 who now has a recurrence with metastasis to the esophagus. Admitted to the hospital with recurrent pleural effusions, right greater than left. Has had 2 thoracenteses. Now also has aspiration pneumonia. Dr. Ramirez has been consulted for a Pleurx catheter on the right and possible PEG tube so that he may stay nourished while undergoing chemotherapy. He has a hx of BPD and is very stable. He has a history of ascites and biliary stasis and was recently at [facility] for an ERCP. This was aborted due to recurrent CA with metastases to the esophagus. He now has a KOBE drain inserted in the abdomen to drain ascites. He is currently afebrile. Vital signs are stable. He is 95-97% saturated on a 2 L nasal cannula. He has been seen by speech therapy and was approved for a mechanical soft diet with regular/thin liquids. Sputum Gram stain has 4+ white blood cells. Legionella and streptococcal antigens in the urine were negative. Respiratory panel was negative and the sputum culture is pending. Urine culture is no growth. - Physical Exam General: Alert, Oriented x3, Cooperative, No apparent distress HEENT: Atraumatic, Normocephalic Oral: Moist Mucosa Neck: Supple, No JVD Lungs: No wheeze, Diminished, - - coarse crackles on the right anteriorly today Cardiovascular: Regular rate, Regular Rhythm, No murmurs, No rub noted, No Gallop Abdomen: Bowel Sounds Present, Non Tender, Distended - the abd is more distended today and more tense. It is no tender to palapation. there is no pitting in the flanks Extremities: No clubbing, No cyanosis, Edema Skin: No rashes Neurological: Cranial nerves II-XII grossly intact, Neuro grossly intact Vital Signs Temp Pulse Resp BP Pulse Ox 97.9 F 102 H 18 126/94 H 95 06/09/17 08:19 06/09/17 11:55 06/09/17 11:08 06/09/17 08:19 06/09/17 11:08 Oxygen Flow Rate 2 Oxygen Delivery Method Nasal Cannula Weight: 172 lb 6.424 oz Body Mass Index (BMI) 26.2 Intake and Output for Last 24 Hours 06/07/17 06/08/17 06/09/17 23:59 23:59 23:59 Intake Total 1478 / 1478 2836 / 2836 Output Total 810 / 810 675 / 675 Balance 668 / 668 2161 / 2161 Microbiology Past 72 Hours 06/08/17 09:20 Gram Stain - Final Sputum, Expectorated/Coughed 06/08/17 09:00 Respiratory Panel (PCR) - Final Mucosa - Nasopharyngeal 06/08/17 09:00 Legionella Antigen - Final Urine, Clean Catch 06/08/17 09:00 Streptococcus pneumoniae Antigen (M - Final Urine, Clean Catch Laboratory Tests Past 24 Hrs 06/09/17 05:30 MRSA (PCR) Negative Assessment/Plan Active and Suspected Problems (Last Reviewed 06/09/17 @ 08:45 by Segun Ramirez MD) Abdominal pain (Acute) Hyponatremia (Acute) Vancomycin and cefepime day #2 Impressions 1. Aspiration PNA - Continue 2. dysphagia 3. H&N squamous CA at the base of the tongue diagnosed and treated in 2014 and nowq with recurrence in the esophagus 4. ascites - suspect malignant. Had a drain recently put in at [facility] but there is no significant drainage and the ABD is more distended and tense today 5. Recurrent BL pleural effusions, R>L. Atypical squamous cells in the first thoracentesis. Has had [address] Ramirez is on consult and is planning a pleurx catheter Saturday.......should probably have a diagnostic and therapeutic paracentesis and a PEG as well. 6. BPD - complicates care, management, prognosis and recovery 7. anemia of malignancy 8. former smoker 9. Hyponatremia 10. DM II 11. Hypothyroidism As above Will need to consult Dr. Galvin who is following this pt and he is going to be getting more chemo which may be started in the hospital Dr. Ramirez will insert PEG and Pleurx catheter tomorrow. Would also like to get a diagnostic and therapeutic paracentesis Decrease the IV rate to 15 cc/hr Start Aldactone and small dose of Lasix following surgery Recheck lab in the AM Continue the Lactulose order BS's and SSI coverage....was not on meds at home Continue current antibiotics and await the results of the sputum culture Code Visit Inpatient E&M: 49436 Subs Hosp L2
[2017-06-09] MEDS: Paliperidone 1.5 MG TAB.ER.24 PO (17:31)
[2017-06-09] MEDS: QUEtiapine 100 MG Tablet 200 MG PO (21:47)
[2017-06-09] MEDS: Lidocaine 5% Patch 2 PATCH TOPICAL (21:47)
[2017-06-09 22:05] LABS: Vancomycin, Trough Level 15.1 ug/mL (5.0-15.0)
[2017-06-09] MEDS: Lactated Ringers 1,000 ML 15 ML IV (22:10)
[2017-06-10] VITALS (21 sets, daily range): BP systolic 113–158; BP diastolic 67–103; PULSE 66–105; RESP 9–18; TEMP 36.3–37.2; O2SAT 92–99; BMI 26.2
--- NOTE | 2017-06-10 05:55 | EKG12_ITS ---
Test Reason : AM EKG Blood Pressure : / mmHG Vent. Rate : 095 BPM Atrial Rate : 095 BPM P-R Int : 150 ms QRS Dur : 114 ms QT Int : 368 ms P-R-T Axes : 060 058 027 degrees QTc Int : 462 ms Normal sinus rhythm Nonspecific T wave abnormality Prolonged QT Abnormal ECG Confirmed by ESAU LEIGH, ANGELICA ([id number]), advertising editor ALMA BAKER ([id number] on 06/20/2017 12:54:52 PM Referred By: Edgar Galvin Confirmed By:ANGELICA CIFUENTES MD
[2017-06-10] MEDS: Levothyroxine 125 MCG Tablet PO (06:36)
[2017-06-10 06:38] LABS: ALB/GLOB Ratio 0.7 RATIO (0.9-2.4); AST(SGOT) 25 U/L (15-37); Alanine Aminotransfer ALT/SGPT 38 U/L (12-78); Albumin, Serum 2.6 g/dL (3.4-5.0); Alkaline Phosphatase 269 U/L (45-117); Anion Gap 9 (5-15); BUN 9 mg/dL (7-18); BUN/Creat Ratio 10.7 RATIO (10-20); Calcium,Total 8.6 mg/dL (8.5-10.1); Chloride 102 mmol/L (98-107); Creatinine, Serum 0.84 mg/dL (0.70-1.30); EST Glomerular Filtration Rate 102 mL/min (>60); Est Glom Filt Rate - Afr Amer 123 mL/min (>60); Estimated Creatinine Clearance 100.65 ml/min; Globulin 3.5 g/dL (2.2-4.2); Glucose 141 mg/dL (70-110); Phosphorus 2.8 mg/dL (2.5-4.9); Potassium 3.4 mmol/L (3.5-5.1); Protein, Total 6.1 g/dL (6.4-8.2); Sodium Level 137 mmol/L (136-145)
[2017-06-10 06:46] LABS: Bedside Glucose 150 mg/dL (70-110)
[2017-06-10 06:47] LABS: Partial Thromboplast Time 43.7 Seconds (24.1-36.2)
[2017-06-10] MEDS: Ipratropium/Albuterol Sulfate 3 ML AMPUL.NEB INHALATION ×3 (07:06→18:55)
[2017-06-10 07:11] LABS: International Normalized Ratio 1.1; Prothrombin Time (Protime)PT. 13.7 SECONDS (11.7-14.9)
[2017-06-10 07:14] LABS: Absolute Lymphocyte Count 0.42 X10^3/ul (0.83-4.51); Absolute Neutrophil Count 4.8 X10^3/uL (2.0-7.7); Basophil# 0.01 X10^3/uL; Basophil% 0.2 % (0-1); Eosinophil# 0.14 X10^3/uL; Eosinophils% 2.3 % (0-5); Hematocrit 27.2 % (40-54); Hemoglobin 8.9 g/dl (13.0-16.5); Lymphocyte # 0.42 X10^3/ul (4.0); Mean Corp Hgb Conc 32.7 g/gl (32-36); Mean Corpuscular Volume 88.6 fL (80-94); Mean Platelet Vol. 11.6 fl (6.2-12.0); Monocyte# 0.58 X10^3/uL; Monocyte% 9.7 % (0-10); Neutrophil # 4.83 X10^3/uL (2.7-7.7); Neutrophil % 80.6 % (47-70); Platelet Count 192 K/mm3 (150-450); RBC Distribution Width SD 50.1 fl (35.1-43.9); Red Blood Count 3.07 M/mm3 (4.6-6.2)
[2017-06-10 07:16] LABS: Differential Indicated SCAN CRITERIA MET; POSITIVE COUNT NO; POSITIVE DIFFERENTIAL YES; POSITIVE MORPHOLOGY NO
[2017-06-10 11:46] LABS: Bedside Glucose 186 mg/dL (70-110)
--- NOTE | 2017-06-10 13:57 | NURSING ---
Report called to PACU
--- NOTE | 2017-06-10 14:16 | PCM.PROGNOTE ---
Patient Problems: Active and Suspected Problems (Last Reviewed 06/09/17 @ 08:45 by Segun Ramirez MD) Abdominal pain (Acute) Hyponatremia (Acute) Subjective: Patient seen and examined. Resting in bed in no acute distress. Complains of abdominal bloating. Denies fever, chills. Complains of wheezing and intermittent shortness of breath. Denies chest pain. Denies nausea, vomiting. Denies other complaints. - Physical Exam General: Alert, Oriented x3, Cooperative, No apparent distress HEENT: Atraumatic, PERRLA, EOMI, Normocephalic Neck: Supple, No JVD, Negative Carotid Bruits Lungs: Diminished, Wheezes Cardiovascular: Regular rate, Regular Rhythm, Normal S1, Normal S2, No murmurs Abdomen: Bowel Sounds Present, Soft, Non Tender, Distended Extremities: No clubbing, No cyanosis, No edema, Capillary Refill Less than 3 Seconds Skin: No rashes, No breakdown Musculoskeletal: No Tenderness to Palpation of Joints or Extremities Neurological: Cranial nerves II-XII grossly intact, Neuro grossly intact Psych/Mental Status: Normal Affect, Appropriate Vital Signs Temp Pulse Resp BP Pulse Ox 97.7 F L 87 16 124/68 H 96 06/10/17 08:19 06/10/17 13:14 06/10/17 13:39 06/10/17 08:19 06/10/17 13:39 Oxygen Flow Rate 2 Oxygen Delivery Method Room Air Weight: 78.2 kg Body Mass Index (BMI) 26.2 Intake and Output for Last 24 Hours 06/08/17 06/09/17 06/10/17 23:59 23:59 23:59 Intake Total 1478 / 1478 3836 / 3836 1361.5 / 1361.5 Output Total 810 / 810 1800 / 1800 275 / 275 Balance 668 / 668 2036 / 2036 1086.5 / 1086.5 Microbiology Past 72 Hours 06/08/17 09:20 Gram Stain - Final Sputum, Expectorated/Coughed Respiratory Culture - Final Presumptive C albicans 06/08/17 09:00 Respiratory Panel (PCR) - Final Mucosa - Nasopharyngeal 06/08/17 09:00 Legionella Antigen - Final Urine, Clean Catch 06/08/17 09:00 Streptococcus pneumoniae Antigen (M - Final Urine, Clean Catch Laboratory Tests Past 24 Hrs 0106/10/17 06/10/17 21:30 06:00 06:00 WBC 6.0 RBC 3.07 L Hgb 8.9 L Hct 27.2 L MCV 88.6 MCH 29.0 MCHC 32.7 RDW 16.0 H RDW Differential 50.1 H Plt Count 192 MPV 11.6 Immature Gran % (Auto) 0.200 Neut % (Auto) 80.6 H Lymph % (Auto) 7.0 L [place] % (Auto) 9.7 Eos % (Auto) 2.3 Baso % (Auto) 0.2 Absolute Neuts (auto) 4.8 Absolute Lymphs (auto) 0.42 L Total Counted Not Reportable Differential Comment PT 13.7 INR 1.1 APTT Sodium Potassium Chloride Carbon Dioxide Anion Gap BUN Creatinine Estim Creat Clear Calc Est GFR (MDRD) Af Amer Est GFR (MDRD) Non-Af BUN/Creatinine Ratio Glucose Calcium Phosphorus Magnesium Total Bilirubin AST ALT Alkaline Phosphatase Total Protein Albumin Globulin Albumin/Globulin Ratio Vancomycin Trough 15.1 H [place] 06/10/17 06/10/17 06/10/17 06:00 06:00 06:00 WBC RBC Hgb Hct MCV MCH MCHC RDW RDW Differential Plt Count MPV Immature Gran % (Auto) Neut % (Auto) Lymph % (Auto) [place] % (Auto) Eos % (Auto) Baso % (Auto) Absolute Neuts (auto) Absolute Lymphs (auto) Total Counted Differential Comment PT INR APTT 43.7 H Sodium 137 Potassium 3.4 L Chloride 102 Carbon Dioxide 26.0 Anion Gap 9 BUN 9 Creatinine 0.84 Estim Creat Clear Calc 100.65 Est GFR (MDRD) Af Amer 123 Est GFR (MDRD) Non-Af 102 BUN/Creatinine Ratio 10.7 Glucose 141 H Calcium 8.6 Phosphorus 2.8 Magnesium 2.0 Total Bilirubin 0.70 AST 25 ALT 38 Alkaline Phosphatase 269 H Total Protein 6.1 L Albumin 2.6 L Globulin 3.5 Albumin/Globulin Ratio 0.7 L Vancomycin Trough [place] 0.20 L POC Glucose 06/10/17 06/10/17 11:28 06:39 POC Glucose 186 H 150 H Assessment/Plan Active and Suspected Problems (Last Reviewed 06/09/17 @ 08:45 by Segun Ramirez MD) Abdominal pain (Acute) Hyponatremia (Acute) Patient is a 51-year-old male admitted 06/08/2017 due to upper abdominal pain. 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 KOBE drain was placed at that time as previously noted. 1. Aspiration pneumonia-underlying recurrent pleural effusions, suspected to be malignant. Patient had recent thoracentesis X2 with atypical squamous cells noted. Patient will undergo Pleurx catheter placement today with Dr. Ramirez. Patient is afebrile. No leukocytosis. Continue albuterol and DuoNeb aerosols. Continue Augmentin 875 mg p.o. twice daily. Continue Mucinex twice daily. Sputum culture showing presumptive C albicans. Urine for strep and Legionella negative. Respiratory panel negative. Continue oxygen supplementation to maintain O2 at or above 90%. 2. Dysphasia secondary to recent diagnosis of metastatic cancer to the esophagus-N.p.o. for PEG tube placement today. Dr. Ramirez following. ST. 3. Recent diagnosis metastatic head and neck cancer-previously diagnosed in 2014 with tongue cancer and now recurrence in the esophagus. Patient is following with Dr. Galvin who is consulted. 4. Ascites-again, suspect malignant. Surgery consulted. Patient may require diagnostic and therapeutic paracentesis in the future. 5. Bipolar disorder-continue home regimen. 6. Hypothyroidism-continue home Synthroid regimen. 7. Type 2 diabetes [id number] before meals at bedtime with sliding scale insulin. 8. Former tobacco abuse-encourage continued cessation. 9. Normochromic normocytic anemia-stable, monitor CBC. DVT prophylaxis-Lovenox subcu. This patient was seen by BRYSON Lundberg under the supervision of Dr. White.
--- NOTE | 2017-06-10 14:40 | PN_ITS ---
Patient Problems: Active and Suspected Problems (Last Reviewed 06/09/17 @ 08:45 by Segun Ramirez MD) Abdominal pain (Acute) Hyponatremia (Acute) Subjective: Patient seen and examined. Resting in bed in no acute distress. Complains of abdominal bloating. Denies fever, chills. Complains of wheezing and intermittent shortness of breath. Denies chest pain. Denies nausea, vomiting. Denies other complaints. - Physical Exam General: Alert, Oriented x3, Cooperative, No apparent distress HEENT: Atraumatic, PERRLA, EOMI, Normocephalic Neck: Supple, No JVD, Negative Carotid Bruits Lungs: Diminished, Wheezes Cardiovascular: Regular rate, Regular Rhythm, Normal S1, Normal S2, No murmurs Abdomen: Bowel Sounds Present, Soft, Non Tender, Distended Extremities: No clubbing, No cyanosis, No edema, Capillary Refill Less than 3 Seconds Skin: No rashes, No breakdown Musculoskeletal: No Tenderness to Palpation of Joints or Extremities Neurological: Cranial nerves II-XII grossly intact, Neuro grossly intact Psych/Mental Status: Normal Affect, Appropriate Vital Signs Temp Pulse Resp BP Pulse Ox 97.7 F L 87 16 124/68 H 96 06/10/17 08:19 06/10/17 13:14 06/10/17 13:39 06/10/17 08:19 06/10/17 13:39 Oxygen Flow Rate 2 Oxygen Delivery Method Room Air Weight: 78.2 kg Body Mass Index (BMI) 26.2 Intake and Output for Last 24 Hours 06/08/17 06/09/17 06/10/17 23:59 23:59 23:59 Intake Total 1478 / 1478 3836 / 3836 1361.5 / 1361.5 Output Total 810 / 810 1800 / 1800 275 / 275 Balance 668 / 668 2036 / 2036 1086.5 / 1086.5 Microbiology Past 72 Hours 06/08/17 09:20 Gram Stain - Final Sputum, Expectorated/Coughed Respiratory Culture - Final Presumptive C albicans 06/08/17 09:00 Respiratory Panel (PCR) - Final Mucosa - Nasopharyngeal 06/08/17 09:00 Legionella Antigen - Final Urine, Clean Catch 06/08/17 09:00 Streptococcus pneumoniae Antigen (M - Final Urine, Clean Catch Laboratory Tests Past 24 Hrs 0106/10/17 06/10/17 21:30 06:00 06:00 WBC 6.0 RBC 3.07 L Hgb 8.9 L Hct 27.2 L MCV 88.6 MCH 29.0 MCHC 32.7 RDW 16.0 H RDW Differential 50.1 H Plt Count 192 MPV 11.6 Immature Gran % (Auto) 0.200 Neut % (Auto) 80.6 H Lymph % (Auto) 7.0 L [place] % (Auto) 9.7 Eos % (Auto) 2.3 Baso % (Auto) 0.2 Absolute Neuts (auto) 4.8 Absolute Lymphs (auto) 0.42 L Total Counted Not Reportable Differential Comment PT 13.7 INR 1.1 APTT Sodium Potassium Chloride Carbon Dioxide Anion Gap BUN Creatinine Estim Creat Clear Calc Est GFR (MDRD) Af Amer Est GFR (MDRD) Non-Af BUN/Creatinine Ratio Glucose Calcium Phosphorus Magnesium Total Bilirubin AST ALT Alkaline Phosphatase Total Protein Albumin Globulin Albumin/Globulin Ratio Vancomycin Trough 15.1 H [place] 06/10/17 06/10/17 06/10/17 06:00 06:00 06:00 WBC RBC Hgb Hct MCV MCH MCHC RDW RDW Differential Plt Count MPV Immature Gran % (Auto) Neut % (Auto) Lymph % (Auto) [place] % (Auto) Eos % (Auto) Baso % (Auto) Absolute Neuts (auto) Absolute Lymphs (auto) Total Counted Differential Comment PT INR APTT 43.7 H Sodium 137 Potassium 3.4 L Chloride 102 Carbon Dioxide 26.0 Anion Gap 9 BUN 9 Creatinine 0.84 Estim Creat Clear Calc 100.65 Est GFR (MDRD) Af Amer 123 Est GFR (MDRD) Non-Af 102 BUN/Creatinine Ratio 10.7 Glucose 141 H Calcium 8.6 Phosphorus 2.8 Magnesium 2.0 Total Bilirubin 0.70 AST 25 ALT 38 Alkaline Phosphatase 269 H Total Protein 6.1 L Albumin 2.6 L Globulin 3.5 Albumin/Globulin Ratio 0.7 L Vancomycin Trough [place] 0.20 L POC Glucose 06/10/17 06/10/17 11:28 06:39 POC Glucose 186 H 150 H Assessment/Plan Active and Suspected Problems (Last Reviewed 06/09/17 @ 08:45 by Segun Ramirez MD) Abdominal pain (Acute) Hyponatremia (Acute) Patient is a 51-year-old male admitted 06/08/2017 due to upper abdominal pain. 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 Patient was recently at [facility] for an ERCP which was canceled due to endoscopy which revealed metastatic cancer to the esophagus. KOBE drain was placed at that time as previously noted. 1. Aspiration pneumonia-underlying recurrent pleural effusions, suspected to be malignant. Patient had recent thoracentesis X2 with atypical squamous cells noted. Patient will undergo Pleurx catheter placement today with Dr. Ramirez. Patient is afebrile. No leukocytosis. Continue albuterol and DuoNeb aerosols. Continue Augmentin 875 mg p.o. twice daily. Continue Mucinex twice daily. Sputum culture showing presumptive C albicans. Urine for strep and Legionella negative. Respiratory panel negative. Continue oxygen supplementation to maintain O2 at or above 90%. 2. Dysphasia secondary to recent diagnosis of metastatic cancer to the esophagus-N.p.o. for PEG tube placement today. Dr. Ramirez following. ST. 3. Recent diagnosis metastatic head and neck cancer-previously diagnosed in 2014 with tongue cancer and now recurrence in the esophagus. Patient is following with Dr. Galvin who is consulted. 4. Ascites-again, suspect malignant. Surgery consulted. Patient may require diagnostic and therapeutic paracentesis in the future. 5. Bipolar disorder-continue home regimen. 6. Hypothyroidism-continue home Synthroid regimen. 7. Type 2 diabetes [id number] before meals at bedtime with sliding scale insulin. 8. Former tobacco abuse-encourage continued cessation. 9. Normochromic normocytic anemia-stable, monitor CBC. DVT prophylaxis-Lovenox subcu. This patient was seen by BRYSON Lundberg under the supervision of Dr. White.
[2017-06-10] MEDS: Cefazolin 2 GM in 0.9% Normal Saline 100 ML IV (14:52)
[2017-06-10] MEDS: Bupivacaine Mpf 0.5% 30 ML VIAL (14:59)
--- NOTE | 2017-06-10 15:14 | ONC.CONSULT ---
Consult Referring Physician: Savannah Polanco CNP Subjective Date of Service:: 06/10/17 Chief Complaint: Metastatic head and neck cancer History of Present Illness: Mr. Tate Byers is a very pleasant 51-year-old man who presented with a left neck mass in 2014. FNA of the left neck mass on 09/23/2014 showed metastatic squamous cell carcinoma, p16 positive. Biopsy of the base of the tongue on the same day was also positive for invasive squamous cell carcinoma. Staging PET CT scan on 09/13/2014 showed no distant metastasis. Stage on presentation was IVB (T2, N3, M0). He received combined chemotherapy and radiation therapy from 11/01/2014 to 12/31/2014. Required PEG tube placement during treatment, later removed. He received 7 weekly cycles of cisplatin. He had a post treatment PET scan on 03/28/2015, which showed no evidence of disease. Compliant with recommendations for surveillance inclusive of fiber optic ENT examinations per Dr. Flores. Developed acute dyspnea and cough which prompted presentation to [facility] ED 04/27/17, found to have nonocclusive pulmonary embolism and bilateral pleural effusions (R>L), thus underwent thoracentesis, cytology of which revealed presence of atypical squamoid cells prior to discharge. The patient later developed acute abdominal pain accompanied by jaundice which prompted presentation to [facility] ED on 05/17/18, subsequently transferred to [facility] for management of biliary obstruction. Biliary drain placed and underwent EGD with US and diagnostic ERCP (procedure aborted d/t narrowing) with biopsy of lower esophagus and cardia of stomach, pathology of which returned positive for squamous cell carcinoma. Experienced syncopal episode 05/29/17 and was transported by squad yet again to [facility] ED. CT revealed bleed associated with biliary drain, thus as promptly transferred back to [facility]. During admission, followed closely with psychiatry as medications were adjusted d/t hepatic dysfunction. Care complicated by encephalopathy and malnutrition resulting in significant weight loss. Underwent port placement 06/07/[address] Olguin. The patient was admitted 06/08/17 for management of worsening bilateral effusions and probable aspiration pneumonia. PleurX cath placement planned for later this afternoon. Upon assessment, the patient is alert and oriented with appropriate mood/affect for the circumstances. Rates abdominal pain 6-7/10 at this time and requests prn dose of analgesia. Dyspnea unchanged. Denies CP. Believes psychoactive medications have been well managed as he denies any changes in mood, sleep disturbances and thoughts of harming self or others. Power of Accounting Administrator: Yes Living Will: Yes Health History: Social History Smoking Status Former smoker Past Medical History - Most Recent Inpatient Visit Past Medical History Start: 06/08/17 08:11 Text: Status: Complete Freq: ONCE Protocol: Document 06/08/17 08:11 ISHMAEL (Rec: 06/08/17 08:22 LINKW [id number]) BMI Required to complete PMH What is Patient's BMI 26.2 Past Medical History Unable History Recalled No Query Text:Pt Unable/Family Not Present Neurologic Medical History Hx Stroke/TIA No Hx Dementia/Alzheimer's No Hx Parkinson's Disease No Hx Seizures No Hx Multiple Sclerosis No Hx Migraines No Cardiac Medical History VTE Present on Admission No Hx of Deep Vein Thrombosis/VTE/PE No Hx Hypertension Yes: controlled with med Hx Chest Pain/Angina No Hx Heart Attack No Hx Cardiac Surgery/Stents/Etc. No Hx Heart Failure No Hx Pacemaker/AICD No Hx Irregular Heartbeat and/or Afib No Hx Anticoagulant Therapy No Query Text:(Coumadin, Aspirin, Plavix, Xarelto, etc.) Hx Pain in Legs when Walking/Leg Cramps No Respiratory Medical History Hx COPD No: thorentesis 1 month ago Hx Emphysema No Hx Smoking Yes: quit 10 yrs ago/3-4 cigarettes 30 yrs Smoking Status Former smoker Hx Tobacco Use in last 12 months No Hx Sleep Apnea No CPAP No BIPAP No Do you snore loudly (louder than talking No or can be heard through closed doors)? Do you often feel tired/ fatigued/ No sleepy during daytime? Has anyone observed you stop breathing No during sleep? STOP Results Negative GI Medical History Hx Ulcer No Hx Hepatitis No Hx Cirrhosis No Hx GI Bleed Yes: currently/d/t bilary drain Hx Unplanned Weight Loss Yes: 60 # D/T TO THROAT CANCER Genitourinary Medical History Indwelling Catheter in Place on Arrival/ No Admission Hx Renal Disease No Hx Dialysis No Musculoskeletal History Hx Arthritis No Hx Rheumatoid Arthritis No Endocrine Medical History Hx Diabetes Yes: HAD UNTIL LOST 100LBS SINCE [place] Hx Thyroid Disease Yes: on med Hematologic Medical History Hx of Blood Transfusion No Hx of Transfusion in last 3 Months No Ever experience any problems with No transfusion(s)? Hx of Preganancy in last 3 Months N/A Nurse Filling Out Transfusion & JWILLIAMS Questions: Date: 06/08/17 Time: 08:21 Psycho/Social Medical History Hx Depression Yes Hx Anxiety Yes Hx Behavior Disorder Yes Hx Alcohol Use Yes: LIGHT DRINKER Hx Substance Use No Other Medical History Hx Blood Disorders No Hx Anemia No Hx Cancer Yes: HEAD & NECK 2 yrs ago/ esphogual and stomach ca Hx Drug Resistant Organism No Wound/Pressure Injury Present on Arrival No /Admission Query Text:If yes, chart assessment in Shift/Clinical Findings Central Line/PICC/VAD Present on Arrival No /Admission Antibiotics within last 7 days? Yes Comments *does not know name of atb- will be hre shorty with med list Methicillin Resistant Staphylococcus aureus Screening Active MRSA No Risk for Readmission Number of Risk Factors 8 At Risk for Readmission Patient is At Risk For Readmission Patient is eligible for Call Back Y Allergies/Adverse Reactions: Allergy/AdvReac Type Severity Reaction Status Date / Time No Known Allergies Allergy Verified 06/08/17 02:29 Home Medications Medication Instructions Recorded Citalopram [Celexa] 20 mg PO DAILY 09/20/14 Levothyroxine [Synthroid] 125 mcg PO DAILY 09/20/14 Quetiapine Fumarate [Seroquel] 200 mg PO QHS 08/15/16 Oxcarbazepine [Trileptal] 300 mg PO BID 02/14/17 Amlodipine [Norvasc] 10 mg PO DAILY #30 tab 05/01/17 Dexamethasone [Decadron] 4 mg PO DAILY@0800 #30 tab 05/14/17 Bisacodyl [Dulcolax] 10 mg RECTAL DAILY PRN PRN 05/29/17 Docusate Sodium [Stool Softener] 100 mg PO BID PRN PRN 05/29/17 Enoxaparin [Lovenox] 80 mg SQ BID 05/29/17 Lactulose [Constulose] 10 gm PO TID 06/03/17 Lidocaine/Prilocaine 30 gm TP DAILY PRN PRN #1 cream..g. 06/05/17 [Lidocaine-Prilocaine Cream] Bellbrook Citrate [Bellbrook] 5 ml PO DAILY 06/06/17 Oxycodone HCl/Acetaminophen 1 - 2 tab PO Q4H PRN PRN #30 tab 06/07/17 [Percocet 5/325] Paliperidone [Paliperidone ER] 1.5 mg PO DAILY 06/08/17 Pantoprazole Sodium [Protonix] 40 mg PO DAILY 06/08/17 Review of Systems Constitutional:: Reports: Weakness, Fatigue. Denies: Fever, Sweats, Weight loss, Appetite change, Chills Cardiovascular:: Reports: Dyspnea on exertion. Denies: Chest pain, Palpitations, Orthopnea, PND Respiratory: Reports: Cough, Shortness of Breath, Wheezing. Denies: Hemoptysis Gastrointestinal:: Reports: Abdominal pain, Difficulty swallowing. Denies: Nausea, Vomiting, Diarrhea, Constipation, Hematochezia Genitourinary: Denies: Dysuria, Hematuria, 15, Flank pain Musculoskeletal:: Reports: Back pain. Denies: Myalgia, Arthralgia Skin: Denies: Rash, Skin Changes, Wounds Neurological:: Denies: Headache, Dizziness, Numbness, Tingling, Visual changes, Tinnitus, Hearing loss Psychiatric: Denies: Anxiety, Depression, Homicidal Ideations, Suicidal Ideations Vital Signs Height 5 ft 8 in Weight: 78.2 kg Weight in Pounds 172.4 lbs Pulse Ox 98 Temperature 99 F Pulse Rate 90 Respiratory Rate 9 Blood Pressure 138/75 Blood Pressure Position Semi-Fowlers - Physical Exam General: Alert, Oriented x3, No apparent distress, - - ill appearing HEENT: Atraumatic, Normocephalic Oropharynx:: Dry mucosa. Negative for: Ulcerated lesions Neck:: Supple, Trachea midline. Negative for: JVD, bilateral Cardiac:: Regular rate, Regular rhythm, Normal S1, Normal S2. Negative for: Murmur Lungs: Diminished - in the bases, Excusion symmetrical. Negative for: Rhonchi, Wheezes, Increased respiratory effort Abdomen:: Bowel sounds x 4, Non-tender, Distended, - - firm, biliary drain in place-right. Negative for: Hepatosplenomegaly - difficult to discern d/t abd girth Extremities:: Negative for: Cyanosis, Edema Neurological: Neuro grossly intact Skin:: Ecchymosis - abd and BUE, - - Port right upper chest, covered with DSD. Negative for: Lesions, Rash, Petechiae Psychiatric:: Appropriate affect, Euthymic Lymphatics:: Negative for: Cervical lymphadenopathy, Supraclavicular lymphadenopathy, Axillary lymphadenopathy Laboratory Data: Microbiology 06/08/17 09:20 Gram Stain - Final Sputum, Expectorated/Coughed Respiratory Culture - Final Presumptive C albicans 06/08/17 09:00 Respiratory Panel (PCR) - Final Mucosa - Nasopharyngeal 06/08/17 09:00 Legionella Antigen - Final Urine, Clean Catch 06/08/17 09:00 Streptococcus pneumoniae Antigen (M - Final Urine, Clean Catch Laboratory Tests 06/10/17 06/10/17 06/10/17 Range/Units 11:28 06:39 06:00 WBC (4.4-11.0) K/mm3 RBC (4.6-6.2) M/mm3 Hgb (13.0-16.5) g/dl Hct (40-54) % MCV (80-94) fL MCH (27.0-32.0) pg MCHC (32-36) g/gl RDW (11.6-14.6) % RDW Differential (35.1-43.9) fl Plt Count (150-450) K/mm3 MPV (6.2-12.0) fl Immature Gran % (Auto) (0.0-0.9) % Neut % (Auto) (47-70) % Lymph % (Auto) (19-41) % [place] % (Auto) (0-10) % Eos % (Auto) (0-5) % Baso % (Auto) (0-1) % Absolute Neuts (auto) (2.0-7.7) X10^3/uL Absolute Lymphs (auto) (0.83-4.51) X10^3/ul Total Counted Differential Comment PT (11.7-14.9) SECONDS INR APTT 43.7 H (24.1-36.2) Seconds Sodium (136-145) mmol/L Potassium (3.5-5.1) mmol/L Chloride (98-107) mmol/L Carbon Dioxide (21.0-32.0) mmol/L Anion Gap (5-15) BUN (7-18) mg/dL Creatinine (0.70-1.30) mg/dL Estim Creat Clear Calc ml/min Est GFR (MDRD) Af Amer (>60) mL/min Est GFR (MDRD) Non-Af (>60) mL/min BUN/Creatinine Ratio (10-20) RATIO Glucose (70-110) mg/dL Calcium (8.5-10.1) mg/dL Phosphorus (2.5-4.9) mg/dL Magnesium (1.6-2.6) mg/dL Total Bilirubin (0.20-1.00) mg/dL AST (15-37) U/L ALT (12-78) U/L Alkaline Phosphatase (45-117) U/L Total Protein (6.4-8.2) g/dL Albumin (3.4-5.0) g/dL Globulin (2.2-4.2) g/dL Albumin/Globulin Ratio (0.9-2.4) RATIO Vancomycin Trough (5.0-15.0) ug/mL Bellbrook (0.60-1.20) mmol/L POC Glucose 186 H 150 H (70-110) mg/dL 06/10/17 06/10/17 06/10/17 Range/Units 06:00 06:00 06:00 WBC (4.4-11.0) K/mm3 RBC (4.6-6.2) M/mm3 Hgb (13.0-16.5) g/dl Hct (40-54) % MCV (80-94) fL MCH (27.0-32.0) pg MCHC (32-36) g/gl RDW (11.6-14.6) % RDW Differential (35.1-43.9) fl Plt Count (150-450) K/mm3 MPV (6.2-12.0) fl Immature Gran % (Auto) (0.0-0.9) % Neut % (Auto) (47-70) % Lymph % (Auto) (19-41) % [place] % (Auto) (0-10) % Eos % (Auto) (0-5) % Baso % (Auto) (0-1) % Absolute Neuts (auto) (2.0-7.7) X10^3/uL Absolute Lymphs (auto) (0.83-4.51) X10^3/ul Total Counted Differential Comment PT 13.7 (11.7-14.9) SECONDS INR 1.1 APTT (24.1-36.2) Seconds Sodium 137 (136-145) mmol/L Potassium 3.4 L (3.5-5.1) mmol/L Chloride 102 (98-107) mmol/L Carbon Dioxide 26.0 (21.0-32.0) mmol/L Anion Gap 9 (5-15) BUN 9 (7-18) mg/dL Creatinine 0.84 (0.70-1.30) mg/dL Estim Creat Clear Calc 100.65 ml/min Est GFR (MDRD) Af Amer 123 (>60) mL/min Est GFR (MDRD) Non-Af 102 (>60) mL/min BUN/Creatinine Ratio 10.7 (10-20) RATIO Glucose 141 H (70-110) mg/dL Calcium 8.6 (8.5-10.1) mg/dL Phosphorus 2.8 (2.5-4.9) mg/dL Magnesium 2.0 (1.6-2.6) mg/dL Total Bilirubin 0.70 (0.20-1.00) mg/dL AST 25 (15-37) U/L ALT 38 (12-78) U/L Alkaline Phosphatase 269 H (45-117) U/L Total Protein 6.1 L (6.4-8.2) g/dL Albumin 2.6 L (3.4-5.0) g/dL Globulin 3.5 (2.2-4.2) g/dL Albumin/Globulin Ratio 0.7 L (0.9-2.4) RATIO Vancomycin Trough (5.0-15.0) ug/mL Bellbrook 0.20 L (0.60-1.20) mmol/L POC Glucose (70-110) mg/dL 06/10/17 06/09/17 Range/Units 06:00 21:30 WBC 6.0 (4.4-11.0) K/mm3 RBC 3.07 L (4.6-6.2) M/mm3 Hgb 8.9 L (13.0-16.5) g/dl Hct 27.2 L (40-54) % MCV 88.6 (80-94) fL MCH 29.0 (27.0-32.0) pg MCHC 32.7 (32-36) g/gl RDW 16.0 H (11.6-14.6) % RDW Differential 50.1 H (35.1-43.9) fl Plt Count 192 (150-450) K/mm3 MPV 11.6 (6.2-12.0) fl Immature Gran % (Auto) 0.200 (0.0-0.9) % Neut % (Auto) 80.6 H (47-70) % Lymph % (Auto) 7.0 L (19-41) % [place] % (Auto) 9.7 (0-10) % Eos % (Auto) 2.3 (0-5) % Baso % (Auto) 0.2 (0-1) % Absolute Neuts (auto) 4.8 (2.0-7.7) X10^3/uL Absolute Lymphs (auto) 0.42 L (0.83-4.51) X10^3/ul Total Counted Not Reportable Differential Comment PT (11.7-14.9) SECONDS INR APTT (24.1-36.2) Seconds Sodium (136-145) mmol/L Potassium (3.5-5.1) mmol/L Chloride (98-107) mmol/L Carbon Dioxide (21.0-32.0) mmol/L Anion Gap (5-15) BUN (7-18) mg/dL Creatinine (0.70-1.30) mg/dL Estim Creat Clear Calc ml/min Est GFR (MDRD) Af Amer (>60) mL/min Est GFR (MDRD) Non-Af (>60) mL/min BUN/Creatinine Ratio (10-20) RATIO Glucose (70-110) mg/dL Calcium (8.5-10.1) mg/dL Phosphorus (2.5-4.9) mg/dL Magnesium (1.6-2.6) mg/dL Total Bilirubin (0.20-1.00) mg/dL AST (15-37) U/L ALT (12-78) U/L Alkaline Phosphatase (45-117) U/L Total Protein (6.4-8.2) g/dL Albumin (3.4-5.0) g/dL Globulin (2.2-4.2) g/dL Albumin/Globulin Ratio (0.9-2.4) RATIO Vancomycin Trough 15.1 H (5.0-15.0) ug/mL Bellbrook (0.60-1.20) mmol/L POC Glucose (70-110) mg/dL Diagnostic Data: Diagnostic Data Abdomen/Pelvis CT 06/08/17 02:38 IMPRESSION: Mild heterogeneity of cortical contrast enhancement in the upper pole of the left kidney is a nonspecific finding, possibly representing pyelonephritis. Suggest laboratory correlation. No demonstrated urinary calculi or hydronephrosis. Percutaneous biliary drain/biliary stent is in adequate position. No bile duct dilatation. Moderate amount of ascites, slightly worsened from previous CT scan. No evidence for diverticulitis or appendicitis. Electronically Signed: Eulalio Souza MD at 5:33 EST , Service support , Chest CTA 06/08/17 02:38 IMPRESSION: Normal CTA chest examination, without a demonstrated pulmonary embolism or arterial dissection. Port-A-Cath is in adequate position, with its tip in the SVC-right atrial junction. Large bilateral pleural effusions, with interval worsening from May 29 exam, and with overlying atelectasis in the lower lobes. Right upper lobe and right middle lobe pneumonia and atelectasis, not significant change from May 29 exam. Electronically Signed: Eulalio Souza MD at 5:21 EST , Service support , Assessment and Plan Mr. 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 He is a complex case, presenting with multiple sequelae resulting from recurrence of squamous cell carcinoma, now distantly metastatic. Admitted 06/08/2017 d/t worsening bilateral pleural effusion. 1. Metastatic squamous cell carcinoma involving lower esophagus and cardia of stomach -it has been determined disease presence is in fact metastatic disease deposits from previous history of P16 + tongue cancer as tissue sampled from biopsy of stomach cardia obtained 05/23/2017 at [facility] is also strongly positive for P16. Given the context of current performance status, it has been proposed by Dr. Galvin the patient begin palliative chemotherapy with weekly docetaxel and cisplatin. Insurance precert pending,dose of agents secured in pharmacy. Tentatively to commence with cycle 1 on 06/12/16 irrespective to inpatient/outpatient status. Port placed 06/07/17- can be utilized using sterile technique. 2. Aspiration pneumonia-underlying recurrent pleural effusions, suspected to be malignant as cytology from first thoracentesis obtained 04/27/17 returned positive for the presence of atypical squamous cells. Patient will undergo Pleurx catheter placement today with Dr. Ramirez. 3. Bipolar disorder- No thoughts of harming self or others. Appropriate affect and mood during discussion. Tolerating recent medication changes well. 4. Anemia-Likely multifactoral given recent bleed near the liver/right pericolic gutter, current state of malnourishment and underlying disease process. Hgb 8.9, normocytic. Will continue to monitor. 5. DVT prophylaxis-Lovenox SQ and SCDS. Resume Lovenox subsequent to PleurX insertion. Anna Price, MSN, [employer], AOCNP Medications: Prescriptions This Visit Medication Instructions Recorded Paliperidone [Paliperidone ER] 1.5 mg PO DAILY 06/08/17 Pantoprazole Sodium [Protonix] 40 mg PO DAILY 06/08/17 Medications Added to Medication List This Visit Category Date Time Status Amox/Clavulanate Tablet [Augmentin Tablet] Med 06/10/17 17:00 Active 875 mg PO BIDCM Dexamethasone [Decadron] Med 06/11/17 08:00 Active 4 mg PO DAILY@0800 Insulin Aspart [Novolog Flexpen (BKC)] Med 06/10/17 07:00 Active See Protocol SC ACHS Potassium Chloride 20 meq Med 06/10/17 15:05 Active 0.9% Normal Saline 250 ml IV X1 Primary Care Provider: Rhoda Madera MD Referring Provider: (1) Ascites Status: Chronic (2) Bilateral pleural effusion Status: Chronic Comment: malignant, recurrent (3) 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
--- NOTE | 2017-06-10 15:18 | CON.PCM_ITS ---
Consult Referring Physician: Savannah Polanco CNP Subjective Date of Service:: 06/10/17 Chief Complaint: Metastatic head and neck cancer History of Present Illness: Mr. Tate Byers is a very pleasant 51-year-old man who presented with a left neck mass in 2014. FNA of the left neck mass on 09/23/2014 showed metastatic squamous cell carcinoma, p16 positive. Biopsy of the base of the tongue on the same day was also positive for invasive squamous cell carcinoma. Staging PET CT scan on 09/13/2014 showed no distant metastasis. Stage on presentation was IVB ( T2, N3, M0). He received combined chemotherapy and radiation therapy from 2014 to 12/31/2014. Required PEG tube placement during treatment, later removed. He received 7 weekly cycles of cisplatin. He had a post treatment PET scan on 03/28/2015, which showed no evidence of disease. Compliant with recommendations for surveillance inclusive of fiber optic ENT examinations per Dr. Flores. Developed acute dyspnea and cough which prompted presentation to [facility] ED 04/27/17 , found to have nonocclusive pulmonary embolism and bilateral pleural effusions (R>L), thus underwent thoracentesis, cytology of which revealed presence of atypical squamoid cells prior to discharge. The patient later developed acute abdominal pain accompanied by jaundice which prompted presentation to [facility] ED on 05/17/18, subsequently transferred to [facility] for management of biliary obstruction. Biliary drain placed and underwent EGD with US and diagnostic ERCP (procedure aborted d/t narrowing) with biopsy of lower esophagus and cardia of stomach, pathology of which returned positive for squamous cell carcinoma. Experienced syncopal episode 05/29/17 and was transported by squad yet again to [facility] ED. CT revealed bleed associated with biliary drain, thus as promptly transferred back to [facility]. During admission, followed closely with psychiatry as medications were adjusted d/t hepatic dysfunction. Care complicated by encephalopathy and malnutrition resulting in significant weight loss. Underwent port placement 06/07/[address] Olguin. The patient was admitted 06/08/17 for management of worsening bilateral effusions and probable aspiration pneumonia. PleurX cath placement planned for later this afternoon. Upon assessment, the patient is alert and oriented with appropriate mood/affect for the circumstances. Rates abdominal pain 6-7/ 10 at this time and requests prn dose of analgesia. Dyspnea unchanged. Denies CP. Believes psychoactive medications have been well managed as he denies any changes in mood, sleep disturbances and thoughts of harming self or others. Power of Manager Enrollment: Yes Living Will: Yes Health History: Social History Smoking Status Former smoker Past Medical History - Most Recent Inpatient Visit Past Medical History Start: 06/08/17 08: 11 Text: Status: Complete Freq: ONCE Protocol: Document 06/08/17 08:11 ISHMAEL (Rec: 06/08/17 08:22 [id number]) BMI Required to complete PMH What is Patient's BMI 26.2 Past Medical History Unable History Recalled No Query Text:Pt Unable/Family Not Present Neurologic Medical History Hx Stroke/TIA No Hx Dementia/Alzheimer's No Hx Parkinson's Disease No Hx Seizures No Hx Multiple Sclerosis No Hx Migraines No Cardiac Medical History VTE Present on Admission No Hx of Deep Vein Thrombosis/VTE/PE No Hx Hypertension Yes: controlled with med Hx Chest Pain/Angina No Hx Heart Attack No Hx Cardiac Surgery/Stents/Etc. No Hx Heart Failure No Hx Pacemaker/AICD No Hx Irregular Heartbeat and/or Afib No Hx Anticoagulant Therapy No Query Text:(Coumadin, Aspirin, Plavix, Xarelto, etc.) Hx Pain in Legs when Walking/Leg Cramps No Respiratory Medical History Hx COPD No: thorentesis 1 month ago Hx Emphysema No Hx Smoking Yes: quit 10 yrs ago/3-4 cigarettes 30 yrs Smoking Status Former smoker Hx Tobacco Use in last 12 months No Hx Sleep Apnea No CPAP No BIPAP No Do you snore loudly (louder than talking No or can be heard through closed doors)? Do you often feel tired/ fatigued/ No sleepy during daytime? Has anyone observed you stop breathing No during sleep? STOP Results Negative GI Medical History Hx Ulcer No Hx Hepatitis No Hx Cirrhosis No Hx GI Bleed Yes: currently/d/t bilary drain Hx Unplanned Weight Loss Yes: 60 # D/T TO THROAT CANCER Genitourinary Medical History Indwelling Catheter in Place on Arrival/ No Admission Hx Renal Disease No Hx Dialysis No Musculoskeletal History Hx Arthritis No Hx Rheumatoid Arthritis No Endocrine Medical History Hx Diabetes Yes: HAD UNTIL LOST 100LBS SINCE CA Hx Thyroid Disease Yes: on med Hematologic Medical History Hx of Blood Transfusion No Hx of Transfusion in last 3 Months No Ever experience any problems with No transfusion(s)? Hx of Preganancy in last 3 Months N/A Nurse Filling Out Transfusion & JWILLIAMS Questions: Date: 06/08/17 Time: 08:21 Psycho/Social Medical History Hx Depression Yes Hx Anxiety Yes Hx Behavior Disorder Yes Hx Alcohol Use Yes: LIGHT DRINKER Hx Substance Use No Other Medical History Hx Blood Disorders No Hx Anemia No Hx Cancer Yes: HEAD & NECK 2 yrs ago/ esphogual and stomach ca Hx Drug Resistant Organism No Wound/Pressure Injury Present on Arrival No /Admission Query Text:If yes, chart assessment in Shift/Clinical Findings Central Line/PICC/VAD Present on Arrival No /Admission Antibiotics within last 7 days? Yes Comments *does not know name of atb- will be hre shorty with med list Methicillin Resistant Staphylococcus aureus Screening Active MRSA No Risk for Readmission Number of Risk Factors 8 At Risk for Readmission Patient is At Risk For Readmission Patient is eligible for Call Back Y Allergies/Adverse Reactions: Allergy/AdvReac Type Severity Reaction Status Date / Time No Known Allergies Allergy Verified 06/08/17 02:29 Home Medications Medication Instructions Recorded Citalopram [Celexa] 20 mg PO DAILY 09/20/14 Levothyroxine [Synthroid] 125 mcg PO DAILY 09/20/14 Quetiapine Fumarate [Seroquel] 200 mg PO QHS 08/15/16 Oxcarbazepine [Trileptal] 300 mg PO BID 02/14/17 Amlodipine [Norvasc] 10 mg PO DAILY #30 tab 05/01/17 Dexamethasone [Decadron] 4 mg PO DAILY@0800 #30 tab 05/14/17 Bisacodyl [Dulcolax] 10 mg RECTAL DAILY PRN PRN 05/29/17 Docusate Sodium [Stool Softener] 100 mg PO BID PRN PRN 05/29/17 Enoxaparin [Lovenox] 80 mg SQ BID 05/29/17 Lactulose [Constulose] 10 gm PO TID 06/03/17 Lidocaine/Prilocaine 30 gm TP DAILY PRN PRN #1 cream..g. 06/05/17 [Lidocaine-Prilocaine Cream] Antwerp Citrate [Antwerp] 5 ml PO DAILY 06/06/17 Oxycodone HCl/Acetaminophen 1 - 2 tab PO Q4H PRN PRN #30 tab 06/07/17 [Percocet 5/325] Paliperidone [Paliperidone ER] 1.5 mg PO DAILY 06/08/17 Pantoprazole Sodium [Protonix] 40 mg PO DAILY 06/08/17 Review of Systems Constitutional:: Reports: Weakness, Fatigue. Denies: Fever, Sweats, Weight loss , Appetite change, Chills Cardiovascular:: Reports: Dyspnea on exertion. Denies: Chest pain, Palpitations , Orthopnea, PND Respiratory: Reports: Cough, Shortness of Breath, Wheezing. Denies: Hemoptysis Gastrointestinal:: Reports: Abdominal pain, Difficulty swallowing. Denies: Nausea, Vomiting, Diarrhea, Constipation, Hematochezia Genitourinary: Denies: Dysuria, Hematuria, 15, Flank pain Musculoskeletal:: Reports: Back pain. Denies: Myalgia, Arthralgia Skin: Denies: Rash, Skin Changes, Wounds Neurological:: Denies: Headache, Dizziness, Numbness, Tingling, Visual changes, Tinnitus, Hearing loss Psychiatric: Denies: Anxiety, Depression, Homicidal Ideations, Suicidal Ideations Vital Signs Height 5 ft 8 in Weight: 78.2 kg Weight in Pounds 172.4 lbs Pulse Ox 98 Temperature 99 F Pulse Rate 90 Respiratory Rate 9 Blood Pressure 138/75 Blood Pressure Position Semi-Fowlers - Physical Exam General: Alert, Oriented x3, No apparent distress, - - ill appearing HEENT: Atraumatic, Normocephalic Oropharynx:: Dry mucosa. Negative for: Ulcerated lesions Neck:: Supple, Trachea midline. Negative for: JVD, bilateral Cardiac:: Regular rate, Regular rhythm, Normal S1, Normal S2. Negative for: Murmur Lungs: Diminished - in the bases, Excusion symmetrical. Negative for: Rhonchi, Wheezes, Increased respiratory effort Abdomen:: Bowel sounds x 4, Non-tender, Distended, - - firm, biliary drain in place-right. Negative for: Hepatosplenomegaly - difficult to discern d/t abd girth Extremities:: Negative for: Cyanosis, Edema Neurological: Neuro grossly intact Skin:: Ecchymosis - abd and BUE, - - Port right upper chest, covered with DSD. Negative for: Lesions, Rash, Petechiae Psychiatric:: Appropriate affect, Euthymic Lymphatics:: Negative for: Cervical lymphadenopathy, Supraclavicular lymphadenopathy, Axillary lymphadenopathy Laboratory Data: Microbiology 06/08/17 09:20 Gram Stain - Final Sputum, Expectorated/Coughed Respiratory Culture - Final Presumptive C albicans 06/08/17 09:00 Respiratory Panel (PCR) - Final Mucosa - Nasopharyngeal 06/08/17 09:00 Legionella Antigen - Final Urine, Clean Catch 06/08/17 09:00 Streptococcus pneumoniae Antigen (M - Final Urine, Clean Catch Laboratory Tests 3 06/10/17 06/10/17 06/10/17 Range/Units 11:28 06:39 06:00 WBC (4.4-11.0) K/mm3 RBC (4.6-6.2) M/mm3 Hgb (13.0-16.5) g/dl Hct (40-54) % MCV (80-94) fL MCH (27.0-32.0) pg MCHC (32-36) g/gl RDW (11.6-14.6) % RDW Differential (35.1-43.9) fl Plt Count (150-450) K/mm3 MPV (6.2-12.0) fl Immature Gran % (Auto) (0.0-0.9) % Neut % (Auto) (47-70) % Lymph % (Auto) (19-41) % [place] % (Auto) (0-10) % Eos % (Auto) (0-5) % Baso % (Auto) (0-1) % Absolute Neuts (auto) (2.0-7.7) X10^3/uL Absolute Lymphs (auto) (0.83-4.51) X10^3/ul Total Counted Differential Comment PT (11.7-14.9) SECONDS INR APTT 43.7 H (24.1-36.2) Seconds Sodium (136-145) mmol/L Potassium (3.5-5.1) mmol/L Chloride (98-107) mmol/L Carbon Dioxide (21.0-32.0) mmol/L Anion Gap (5-15) BUN (7-18) mg/dL Creatinine (0.70-1.30) mg/dL Estim Creat Clear Calc ml/min Est GFR (MDRD) Af Amer (>60) mL/min Est GFR (MDRD) Non-Af (>60) mL/min BUN/Creatinine Ratio (10-20) RATIO Glucose (70-110) mg/dL Calcium (8.5-10.1) mg/dL Phosphorus (2.5-4.9) mg/dL Magnesium (1.6-2.6) mg/dL Total Bilirubin (0.20-1.00) mg/dL AST (15-37) U/L ALT (12-78) U/L Alkaline Phosphatase (45-117) U/L Total Protein (6.4-8.2) g/dL Albumin (3.4-5.0) g/dL Globulin (2.2-4.2) g/dL Albumin/Globulin Ratio (0.9-2.4) RATIO Vancomycin Trough (5.0-15.0) ug/mL [place]twerp (0.60-1.20) mmol/L POC Glucose 186 H 150 H (70-110) mg/dL 3 06/10/17 06/10/17 06/10/17 Range/Units 06:00 06:00 06:00 WBC (4.4-11.0) K/mm3 RBC (4.6-6.2) M/mm3 Hgb (13.0-16.5) g/dl Hct (40-54) % MCV (80-94) fL MCH (27.0-32.0) pg MCHC (32-36) g/gl RDW (11.6-14.6) % RDW Differential (35.1-43.9) fl Plt Count (150-450) K/mm3 MPV (6.2-12.0) fl Immature Gran % (Auto) (0.0-0.9) % Neut % (Auto) (47-70) % Lymph % (Auto) (19-41) % [place] % (Auto) (0-10) % Eos % (Auto) (0-5) % Baso % (Auto) (0-1) % Absolute Neuts (auto) (2.0-7.7) X10^3/uL Absolute Lymphs (auto) (0.83-4.51) X10^3/ul Total Counted Differential Comment PT 13.7 (11.7-14.9) SECONDS INR 1.1 APTT (24.1-36.2) Seconds Sodium 137 (136-145) mmol/L Potassium 3.4 L (3.5-5.1) mmol/L Chloride 102 (98-107) mmol/L Carbon Dioxide 26.0 (21.0-32.0) mmol/L Anion Gap 9 (5-15) BUN 9 (7-18) mg/dL Creatinine 0.84 (0.70-1.30) mg/dL Estim Creat Clear Calc 100.65 ml/min Est GFR (MDRD) Af Amer 123 (>60) mL/min Est GFR (MDRD) Non-Af 102 (>60) mL/min BUN/Creatinine Ratio 10.7 (10-20) RATIO Glucose 141 H (70-110) mg/dL Calcium 8.6 (8.5-10.1) mg/dL Phosphorus 2.8 (2.5-4.9) mg/dL Magnesium 2.0 (1.6-2.6) mg/dL Total Bilirubin 0.70 (0.20-1.00) mg/dL AST 25 (15-37) U/L ALT 38 (12-78) U/L Alkaline Phosphatase 269 H (45-117) U/L Total Protein 6.1 L (6.4-8.2) g/dL Albumin 2.6 L (3.4-5.0) g/dL Globulin 3.5 (2.2-4.2) g/dL Albumin/Globulin Ratio 0.7 L (0.9-2.4) RATIO Vancomycin Trough (5.0-15.0) ug/mL [place]twerp 0.20 L (0.60-1.20) mmol/L POC Glucose (70-110) mg/dL 3 06/10/17 06/09/17 Range/Units 06:00 21:30 WBC 6.0 (4.4-11.0) K/mm3 RBC 3.07 L (4.6-6.2) M/mm3 Hgb 8.9 L (13.0-16.5) g/dl Hct 27.2 L (40-54) % MCV 88.6 (80-94) fL MCH 29.0 (27.0-32.0) pg MCHC 32.7 (32-36) g/gl RDW 16.0 H (11.6-14.6) % RDW Differential 50.1 H (35.1-43.9) fl Plt Count 192 (150-450) K/mm3 MPV 11.6 (6.2-12.0) fl Immature Gran % (Auto) 0.200 (0.0-0.9) % Neut % (Auto) 80.6 H (47-70) % Lymph % (Auto) 7.0 L (19-41) % [place] % (Auto) 9.7 (0-10) % Eos % (Auto) 2.3 (0-5) % Baso % (Auto) 0.2 (0-1) % Absolute Neuts (auto) 4.8 (2.0-7.7) X10^3/uL Absolute Lymphs (auto) 0.42 L (0.83-4.51) X10^3/ul Total Counted Not Reportable Differential Comment PT (11.7-14.9) SECONDS INR APTT (24.1-36.2) Seconds Sodium (136-145) mmol/L Potassium (3.5-5.1) mmol/L Chloride (98-107) mmol/L Carbon Dioxide (21.0-32.0) mmol/L Anion Gap (5-15) BUN (7-18) mg/dL Creatinine (0.70-1.30) mg/dL Estim Creat Clear Calc ml/min Est GFR (MDRD) Af Amer (>60) mL/min Est GFR (MDRD) Non-Af (>60) mL/min BUN/Creatinine Ratio (10-20) RATIO Glucose (70-110) mg/dL Calcium (8.5-10.1) mg/dL Phosphorus (2.5-4.9) mg/dL Magnesium (1.6-2.6) mg/dL Total Bilirubin (0.20-1.00) mg/dL AST (15-37) U/L ALT (12-78) U/L Alkaline Phosphatase (45-117) U/L Total Protein (6.4-8.2) g/dL Albumin (3.4-5.0) g/dL Globulin (2.2-4.2) g/dL Albumin/Globulin Ratio (0.9-2.4) RATIO Vancomycin Trough 15.1 H (5.0-15.0) ug/mL [place]erp (0.60-1.20) mmol/L POC Glucose (70-110) mg/dL Diagnostic Data: Diagnostic Data Abdomen/Pelvis CT 06/08/17 02:38 IMPRESSION: Mild heterogeneity of cortical contrast enhancement in the upper pole of the left kidney is a nonspecific finding, possibly representing pyelonephritis. Suggest laboratory correlation. No demonstrated urinary calculi or hydronephrosis. Percutaneous biliary drain/biliary stent is in adequate position. No bile duct dilatation. Moderate amount of ascites, slightly worsened from previous CT scan. No evidence for diverticulitis or appendicitis. Electronically Signed: Eulalio Souza MD at 5:33 EST , Service support , Chest CTA 06/08/17 02:38 IMPRESSION: Normal CTA chest examination, without a demonstrated pulmonary embolism or arterial dissection. Port-A-Cath is in adequate position, with its tip in the SVC-right atrial junction. Large bilateral pleural effusions, with interval worsening from May 29 exam, and with overlying atelectasis in the lower lobes. Right upper lobe and right middle lobe pneumonia and atelectasis, not significant change from May 29 exam. Electronically Signed: Eulalio Souza MD at 5:21 EST , Service support , Assessment and Plan Mr. 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 He is a complex case, presenting with multiple sequelae resulting from recurrence of squamous cell carcinoma, now distantly metastatic. Admitted 06/08/2017 d/t worsening bilateral pleural effusion. 1. Metastatic squamous cell carcinoma involving lower esophagus and cardia of stomach -it has been determined disease presence is in fact metastatic disease deposits from previous history of P16 + tongue cancer as tissue sampled from biopsy of stomach cardia obtained 05/23/2017 at [facility] is also strongly positive for P16. Given the context of current performance status, it has been proposed by Dr. Galvin the patient begin palliative chemotherapy with weekly docetaxel and cisplatin. Insurance precert pending,dose of agents secured in pharmacy. Tentatively to commence with cycle 1 on 06/12/16 irrespective to inpatient/outpatient status. Port placed 06/07/17- can be utilized using sterile technique. 2. Aspiration pneumonia-underlying recurrent pleural effusions, suspected to be malignant as cytology from first thoracentesis obtained 04/27/17 returned positive for the presence of atypical squamous cells. Patient will undergo Pleurx catheter placement today with Dr. Ramirez. 3. Bipolar disorder- No thoughts of harming self or others. Appropriate affect and mood during discussion. Tolerating recent medication changes well. 4. Anemia-Likely multifactoral given recent bleed near the liver/right pericolic gutter, current state of malnourishment and underlying disease process. Hgb 8.9, normocytic. Will continue to monitor. 5. DVT prophylaxis-Lovenox SQ and SCDS. Resume Lovenox subsequent to PleurX insertion. Anna Price, MSN, CELERY PACKER-C, AOCNP Medications: Prescriptions This Visit Medication Instructions Recorded Paliperidone [Paliperidone ER] 1.5 mg PO DAILY 06/08/17 Pantoprazole Sodium [Protonix] 40 mg PO DAILY 06/08/17 Medications Added to Medication List This Visit Category Date Time Status Amox/Clavulanate Tablet [Augmentin Tablet] Med 06/10/17 17:00 Active 875 mg PO BIDCM Dexamethasone [Decadron] Med 06/11/17 08:00 Active 4 mg PO DAILY@0800 Insulin Aspart [Novolog Flexpen (BKC)] Med 06/10/17 07:00 Active See Protocol SC ACHS Potassium Chloride 20 meq Med 06/10/17 15:05 Active 0.9% Normal Saline 250 ml IV X1 Primary Care Provider: Rhoda Madera MD Referring Provider: (1) Ascites Status: Chronic (2) Bilateral pleural effusion Status: Chronic Comment: malignant, recurrent (3) 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
--- NOTE | 2017-06-10 15:42 | OP.PCM_ITS ---
Problem List (1) Ascites Status: Chronic (2) Bilateral pleural effusion Status: Chronic Comment: malignant, recurrent (3) Dysphagia Status: Chronic (4) Metastatic squamous cell carcinoma to esophagus Status: Chronic Comment: from head and neck CA at the base of the tongue Report of Operation Date of Procedure: 06/10/17 Pre-Operative Diagnosis: pleural effusions - recurrent, need for feeding access Post-Operative Diagnosis: large right plueral effusion, successful pleurex catheter placement, stricture at 30cm, unable to advance into stomach and place PEG tube Surgery/Procedure Performed:: Right ultrasound guided tunnelled pleural/pleurex catheter placement, failed PEG tube placement doctor of optometry: None Type of Anesthesia:: MAC Anesthesiologist: Cesar Acuna - ASA3 Specimen's removed: >2500cc right pleural fluid Estimated Blood Loss (mL): minimal Fluids Replaced: 500 Description of Procedure: The patient was brought to the operating suite. The left/right chest site was marked in the holding area and the patient concurred this was the planned operative site. Sign was performed verifying patient, site, position, skip antibiotic prophylaxis-2 g of Ancef and DVT prophylaxis with SCDs. Sound was used to evaluate the left/right thoracic space and pleural fluid was noted to be at the planned site which was marked on the skin Following IV sedation, left/right chest and upper lateral abdomen were prepped and draped in the usual fashion. Timeout was performed verifying patient, site , position. Local anesthetic was injected and a Seldinger needle was used to access the left/right pleural space without difficulty. a guidewire was inserted and advanced into the pleural space. Local anesthetic was injected and incision made for the catheter exit site. Next the catheter was tunneled from the skin exit site to the wire. Dilators were placed over the wire until the largest dilator with introducer sheath were placed. The wire and dilator removed. The catheter was fed through the introducer suture sheath and adjusted to the edge of the pleural surface with the fenestrations . There was good return of pleural fluid. The Pleurx catheter was affixed to an adapter and attached to a Pleur-evac at 20 cm suction. A total of approximately 2500 cc of fluid was drained. The catheter was secured with a 3-0 silk suture at the skin exit site. The thoracic site. Skin was closed with 4-0 Biosyn interrupted subcuticular sutures. Dermabond was applied to the thoracic site. A dressing was applied. The joints were taped and a large dressing placed over the drain exit site. next, upper endoscopy was performed with plans to attempt PEG tube placement. The patient had a failed ERCP attempt at [facility] month previously. The video gastroscope was further oropharynx and advanced. On the esophagus without difficulty until at 30 cm, there was extrinsic narrowing and the scope was able to be advanced beyond that point with multiple attempts. The attempted PEG site, procedure was aborted. The patient was brought to recovery room in stable condition with plans for a postprocedure chest x-ray. - Admit VTE Documentation VTE Present on Admission: No VTE Mechan Device Prophylaxis: SCD's
--- NOTE | 2017-06-10 15:53 | RAD_ITS ---
STUDY: X-RAY CHEST REASON FOR EXAM: Male, 51 years old. Pleurx catheter insertion TECHNIQUE: AP COMPARISON: June 07, 2017 FINDINGS: Right chest port is stable. There is a catheter at the right lung base that could represent Pleurx catheter. Right pleural effusion is decreased. Small left pleural effusion has developed since the prior study. Reticular densities in both lung bases are likely atelectatic in nature. There is mild cardiac enlargement. Normal mediastinum and cadence. Normal visualized pulmonary arteries. There is atherosclerotic calcification of the aortic arch with tortuosity. No acute bony process. There is no demonstrated abnormality of the visualized soft tissue structures of the upper abdomen. RAD/CXR for Line Placement IMPRESSION: 1. Right basilar Pleurx drainage catheter. No pneumothorax. Resolution of right pleural effusion. 2. Small left pleural effusion, new. 3. Bibasilar atelectasis. Electronically Signed: Azeem Lopez MD at 18:29 EST , Service support ,
--- NOTE | 2017-06-10 16:23 | NURSING ---
Report from PACU received.
[2017-06-10] MEDS: Citalopram 20 MG Tablet PO (18:52)
[2017-06-10] MEDS: Paliperidone 1.5 MG TAB.ER.24 PO (18:52)
[2017-06-10] MEDS: Lithium Carbonate 300mg Capsule 300 MG PO (18:53)
[2017-06-10] MEDS: amLODIPine 10 MG Tablet PO (18:53)
[2017-06-10] MEDS: OXcarbazepine 150 MG Tablet 300 MG PO (18:54)
--- NOTE | 2017-06-10 20:01 | NURSING ---
Verbal bedside handoff given by offgoing Nurse Luisito De La Fuente to oncoming nurses.
[2017-06-10] MEDS: Amox/Clav 400mg/5ml Susp 400 MG PO (20:26)
[2017-06-10] MEDS: Lactated Ringers 1,000 ML 15 ML IV (20:29)
[2017-06-10] MEDS: Enoxaparin 80 MG/0.8 ML Syringe SC (21:50)
[2017-06-10] MEDS: QUEtiapine 100 MG Tablet 200 MG PO (21:52)
[2017-06-10] MEDS: Lidocaine 5% Patch 2 PATCH TOPICAL (21:52)
[2017-06-10 21:56] LABS: Bedside Glucose 152 mg/dL (70-110)
[2017-06-10] MEDS: Ondansetron 4 MG/2 ML Vial IV (23:38)
[2017-06-11] VITALS (11 sets, daily range): BP systolic 113–149; BP diastolic 68–95; PULSE 85–107; RESP 18; TEMP 36.3–36.4; O2SAT 93–98
--- NOTE | 2017-06-11 05:00 | RAD_ITS ---
STUDY: X-RAY CHEST REASON FOR EXAM: Male, 51 years old. Pleural effusion. TECHNIQUE: Single AP portable view of the chest. COMPARISON: Comparison is made with prior study dated June 10, 2017. FINDINGS: A right-sided portacatheter is seen. The tip is in the right atrium. EKG electrodes are present. Since prior study, there has been improved aeration at the left lung base. Residual atelectasis and/or infiltrates persist. Stable right basilar atelectasis and/or infiltrates. Blunting of both costophrenic angles. There is borderline cardiomegaly. Normal mediastinum and cadence. Normal visualized pulmonary arteries. Normal visualized aortic arch and descending thoracic aorta. Normal visualized thoracic spine. Normal visualized ribs, clavicles, and shoulders. There is no demonstrated abnormality of the visualized soft tissue structures of the upper abdomen. RAD/Chest 1 View (Portable) IMPRESSION: There has been improved aeration of both lungs. Blunting of both costophrenic angles. Electronically Signed: Brooks Simms MD at 7:54 EST Tel [phone], Service support ,
[2017-06-11] MEDS: 0.9% NaCl Peripheral Flush Adult/Peds IV ×3 (05:55→10:57)
[2017-06-11 06:23] LABS: Hematocrit 29.4 % (40-54); Hemoglobin 9.3 g/dl (13.0-16.5); Mean Corp Hgb Conc 31.6 g/gl (32-36); Mean Corpuscular Hgb 27.9 pg (27.0-32.0); Mean Corpuscular Volume 88.3 fL (80-94); Mean Platelet Vol. 10.8 fl (6.2-12.0); Platelet Count 191 K/mm3 (150-450); RBC Distribution Width CV 16.1 % (11.6-14.6); RBC Distribution Width SD 51.9 fl (35.1-43.9); Red Blood Count 3.33 M/mm3 (4.6-6.2); White Blood Count 9.1 K/mm3 (4.4-11.0)
[2017-06-11 06:31] LABS: Anion Gap 7 (5-15); BUN 11 mg/dL (7-18); BUN/Creat Ratio 11.6 RATIO (10-20); Calcium,Total 8.6 mg/dL (8.5-10.1); Chloride 103 mmol/L (98-107); Creatinine, Serum 0.95 mg/dL (0.70-1.30); EST Glomerular Filtration Rate 89 mL/min (>60); Est Glom Filt Rate - Afr Amer 107 mL/min (>60); Glucose 188 mg/dL (70-110); Scan Indicated on CBC? Y/N YES- FLAGS NOTED; Sodium Level 136 mmol/L (136-145)
[2017-06-11] MEDS: Levothyroxine 125 MCG Tablet PO (07:02)
[2017-06-11 07:41] LABS: Bedside Glucose 189 mg/dL (70-110)
[2017-06-11] MEDS: Amox/Clav 400mg/5ml Susp 400 MG PO (08:01)
[2017-06-11] MEDS: Ipratropium/Albuterol Sulfate 3 ML AMPUL.NEB INHALATION ×2 (08:13→13:25)
--- NOTE | 2017-06-11 08:44 | NURSING ---
THIS RN IS TAKING OVER CARE OF PATIENT, WAS TOLD CT WAS TAKEN OUT THIS AM.
[2017-06-11] MEDS: OXcarbazepine 150 MG Tablet 300 MG PO (10:09)
[2017-06-11] MEDS: Citalopram 20 MG Tablet PO (10:10)
[2017-06-11] MEDS: amLODIPine 10 MG Tablet PO (10:10)
[2017-06-11] MEDS: Lithium Carbonate 300mg Capsule 300 MG PO (10:10)
[2017-06-11] MEDS: Paliperidone 1.5 MG TAB.ER.24 PO (10:11)
[2017-06-11] MEDS: Enoxaparin 80 MG/0.8 ML Syringe SC (10:22)
[2017-06-11] MEDS: Pantoprazole Sodium 40 MG Tablet PO (10:43)
[2017-06-11] MEDS: Ondansetron 4 MG/2 ML Vial IV (10:57)
[2017-06-11 11:20] LABS: Bedside Glucose 206 mg/dL (70-110)
--- NOTE | 2017-06-11 11:20 | PCM.DC ---
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 Ramirez next week. Allergies/Adverse Reactions: Allergies No Known Allergies Allergy (Verified 06/08/17 02:29) Medications to take at Discharge Citalopram [Celexa] 20 mg PO DAILY 09/20/14 Levothyroxine [Synthroid] 125 mcg PO DAILY 09/20/14 Quetiapine Fumarate [Seroquel] 200 mg PO QHS 08/15/16 Oxcarbazepine [Trileptal] 300 mg PO BID 02/14/17 Amlodipine [Norvasc] 10 mg PO DAILY #30 tab 05/01/17 Dexamethasone [Decadron] 4 mg PO DAILY@0800 #30 tab 05/14/17 Bisacodyl [Dulcolax] 10 mg RECTAL DAILY PRN PRN 05/29/17 Docusate Sodium [Stool Softener] 100 mg PO BID PRN PRN 05/29/17 Enoxaparin [Lovenox] 80 mg SQ BID 05/29/17 Lidocaine/Prilocaine [Lidocaine-Prilocaine Cream] 30 gm TP DAILY PRN PRN #1 cream..g. 06/05/17 [place] Citrate [[place]] 5 ml PO DAILY 06/06/17 Oxycodone HCl/Acetaminophen [Percocet 5-325] 1 - 2 tab PO Q4H PRN PRN #30 tab 06/07/17 Paliperidone [Paliperidone ER] 1.5 mg PO DAILY 06/08/17 Pantoprazole Sodium [Protonix] 40 mg PO DAILY 06/08/17 Albuterol Inhaler [Ventolin Hfa] 1 - 2 puff INHALATION Q4H PRN PRN #1 inhaler 06/11/17 Amox/Clav 400mg/5ml Susp [Augmentin Suspension 400mg/5ml] 400 mg PO BIDCM 5 Days po.syringe 06/11/17 Dexamethasone [Decadron] 4 mg PO DAILY@0800 #0 tablet 06/11/17 The following prescriptions were given: Albuterol Inhaler [Ventolin Hfa] 1 - 2 puff INHALATION Q4H PRN PRN #1 inhaler PRN Reason: Shortness Of Breath Amox/Clav 400mg/5ml Susp [Augmentin Suspension 400mg/5ml] 400 mg PO BIDCM 5 Days po.syringe Primary Care Physician: Rhoda Madera MD [Primary Care Provider] - Please follow up with your Primary Care Physician in: 1-2 Weeks Please Follow Up With: Segun Ramirez MD When: Next week, as scheduled Please Follow Up With: Edgar Galvin MD When: Next week, as scheduled Proposed Discharge Date: 06/11/17
--- NOTE | 2017-06-11 11:29 | DCINST_ITS ---
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 Ramirez next week. Allergies/Adverse Reactions: Allergies No Known Allergies Allergy (Verified 06/08/17 02:29) Medications to take at Discharge Citalopram [Celexa] 20 mg PO DAILY 09/20/14 Levothyroxine [Synthroid] 125 mcg PO DAILY 09/20/14 Quetiapine Fumarate [Seroquel] 200 mg PO QHS 08/15/16 Oxcarbazepine [Trileptal] 300 mg PO BID 02/14/17 Amlodipine [Norvasc] 10 mg PO DAILY #30 tab 05/01/17 Dexamethasone [Decadron] 4 mg PO DAILY@0800 #30 tab 05/14/17 Bisacodyl [Dulcolax] 10 mg RECTAL DAILY PRN PRN 05/29/17 Docusate Sodium [Stool Softener] 100 mg PO BID PRN PRN 05/29/17 Enoxaparin [Lovenox] 80 mg SQ BID 05/29/17 Lidocaine/Prilocaine [Lidocaine-Prilocaine Cream] 30 gm TP DAILY PRN PRN #1 cream..g. 06/05/17 [place] Citrate [[place]] 5 ml PO DAILY 06/06/17 Oxycodone HCl/Acetaminophen [Percocet 5-325] 1 - 2 tab PO Q4H PRN PRN #30 tab Paliperidone [Paliperidone ER] 1.5 mg PO DAILY 06/08/17 Pantoprazole Sodium [Protonix] 40 mg PO DAILY 06/08/17 Albuterol Inhaler [Ventolin Hfa] 1 - 2 puff INHALATION Q4H PRN PRN #1 inhaler Amox/Clav 400mg/5ml Susp [Augmentin Suspension 400mg/5ml] 400 mg PO BIDCM 5 Days po.syringe 06/11/17 Dexamethasone [Decadron] 4 mg PO DAILY@0800 #0 tablet 06/11/17 The following prescriptions were given: Albuterol Inhaler [Ventolin Hfa] 1 - 2 puff INHALATION Q4H PRN PRN #1 inhaler PRN Reason: Shortness Of Breath Amox/Clav 400mg/5ml Susp [Augmentin Suspension 400mg/5ml] 400 mg PO BIDCM 5 Days po.syringe Primary Care Physician: Rhoda Madera MD [Primary Care Provider] - Please follow up with your Primary Care Physician in: 1-2 Weeks Please Follow Up With: Segun Ramirez MD When: Next week, as scheduled Please Follow Up With: Edgar Galvin MD When: Next week, as scheduled Proposed Discharge Date: 06/11/17
--- NOTE | 2017-06-11 11:34 | PCM.DC.SUM ---
Discharge Date and Diagnosis Date of Admission: 06/08/17 Date of Discharge: 06/11/17 - Primary Discharge Diagnosis Active and Suspected Problems (Last Reviewed 06/09/17 @ 08:45 by Segun Ramirez MD) 1. Aspiration pneumonia with underlying recurrent pleural effusions, suspected to be malignant 2. Dysphasia secondary to metastatic cancer to the esophagus 3. 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 Suggest laboratory correlation. No demonstrated urinary calculi or hydronephrosis. Percutaneous biliary drain/biliary stent is in adequate position. No bile duct dilatation. Moderate amount of ascites, slightly worsened from previous CT scan. No evidence for diverticulitis or appendicitis. Electronically Signed: Eulalio Souza MD at 5:33 EST , Service support , Chest CTA 06/08/17 02:38 IMPRESSION: Normal CTA chest examination, without a demonstrated pulmonary embolism or arterial dissection. Port-A-Cath is in adequate position, with its tip in the SVC-right atrial junction. Large bilateral pleural effusions, with interval worsening from May 29 exam, and with overlying atelectasis in the lower lobes. Right upper lobe and right middle lobe pneumonia and atelectasis, not significant change from May 29 exam. Electronically Signed: Eulalio Souza MD at 5:21 EST , Service support , Chest X-Ray 01/23/18 05:00 IMPRESSION: There has been improved aeration of both lungs. Blunting of both costophrenic angles. Electronically Signed: Brooks Simms MD at 7:54 EST Tel [phone], Service support , Dr. Galvin- Oncology Dr. Ramirez- Surgery Operations: None Procedures: - - Right ultrasound-guided tunneled pleural Pleurx catheter placement, failed PEG tube placement Summary of Care Provided: Patient is a 51-year-old male admitted 06/08/2017 due to upper abdominal pain. 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 Patient was recently at [facility] for an ERCP which was canceled due to endoscopy which revealed metastatic cancer to the esophagus. 1. Aspiration pneumonia-underlying recurrent pleural effusions, suspected to be malignant. Patient had recent thoracentesis X2 with atypical squamous cells noted. Patient underwent Pleurx catheter insertion to the right pleural space for drainage of malignant pleural effusion 06/10/[address] Bull. Patient is afebrile. No leukocytosis. He will follow-up with Dr. Bull next week, to be scheduled prior to discharge. He will continue Augmentin twice daily for 5 more days at discharge. Sputum culture showing presumptive C albicans. Patient does not appear to have oral yeast overgrowth. Respiratory panel negative. Patient was tested for home oxygen prior to discharge and oxygen was stable on room air at rest and with ambulation. 2. Dysphasia secondary to recent diagnosis of metastatic cancer to the esophagus-PEG tube placement was attempted 06/10/2017 which cannot be completed due to an obstruction from the metastatic squamous cell cancer to the distal esophagus at 30 cm. Options were discussed with oncology. Oncology feels that patient will benefit from chemotherapy as soon as possible. No further J-tube via PEG tube was found to be appropriate at this time per oncology. 3. Recent diagnosis metastatic head and neck cancer-previously diagnosed in 2014 with tongue cancer and now recurrence in the esophagus. Patient is following with Dr. Galvin and will start chemotherapy this 06/12/2017. 4. Ascites-again, suspect malignant. Patient may require diagnostic and therapeutic paracentesis in the future. Patient will follow up with Dr. Bull as outpatient per 5. Bipolar disorder-continue home regimen. 6. Hypothyroidism-continue home Synthroid regimen. 7. Type 2 diabetes mellitus-recent hemoglobin A1c 06/08/2017 5.3%. 8. Former tobacco abuse-encourage continued cessation. 9. Normochromic normocytic anemia-stable. General: Alert, Oriented x3, Cooperative, No apparent distress HEENT: Atraumatic, PERRLA, EOMI, Normocephalic Neck: Supple, No JVD, Negative Carotid Bruits Lungs: Diminished, Wheezes Cardiovascular: Regular rate, Regular Rhythm, Normal S1, Normal S2, No murmurs Abdomen: Bowel Sounds Present, Soft, Non Tender, Distended Extremities: No clubbing, No cyanosis, No edema, Capillary Refill Less than 3 Seconds Skin: No rashes, No breakdown Musculoskeletal: No Tenderness to Palpation of Joints or Extremities Neurological: Cranial nerves II-XII grossly intact, Neuro grossly intact Psych/Mental Status: Normal Affect, Appropriate Patient seen and examined prior to discharge. Physical assessment as noted above. Patient is stable for discharge at this time with the follow-up recommendations as noted above. This patient was seen by BRYSON Lundberg under the supervision of Dr. White. Discharge Diet: Soft diet Discharge Activity: Return to Normal Activity Call your doctor if you observe: Fever of 101 or Higher, Shortness of breath, Dizziness, Fainting spells, Chest pain Home Medications: Medications to take at Discharge Citalopram [Celexa] 20 mg PO DAILY 09/20/14 Levothyroxine [Synthroid] 125 mcg PO DAILY 09/20/14 Quetiapine Fumarate [Seroquel] 200 mg PO QHS 08/15/16 Oxcarbazepine [Trileptal] 300 mg PO BID 02/14/17 Amlodipine [Norvasc] 10 mg PO DAILY #30 tab 05/01/17 Dexamethasone [Decadron] 4 mg PO DAILY@0800 #30 tab 05/14/17 Bisacodyl [Dulcolax] 10 mg RECTAL DAILY PRN PRN 05/29/17 Docusate Sodium [Stool Softener] 100 mg PO BID PRN PRN 05/29/17 Enoxaparin [Lovenox] 80 mg SQ BID 05/29/17 Lidocaine/Prilocaine [Lidocaine-Prilocaine Cream] 30 gm TP DAILY PRN PRN #1 cream..g. 06/05/17 [place] Citrate [[place]] 5 ml PO DAILY 06/06/17 Oxycodone HCl/Acetaminophen [Percocet 5-325] 1 - 2 tab PO Q4H PRN PRN #30 tab 06/07/17 Paliperidone [Paliperidone ER] 1.5 mg PO DAILY 06/08/17 Pantoprazole Sodium [Protonix] 40 mg PO DAILY 06/08/17 Albuterol Inhaler [Ventolin Hfa] 1 - 2 puff INHALATION Q4H PRN PRN #1 inhaler 06/11/17 Amox/Clav 400mg/5ml Susp [Augmentin Suspension 400mg/5ml] 400 mg PO BIDCM 5 Days po.syringe 06/11/17 Dexamethasone [Decadron] 4 mg PO DAILY@0800 #0 tablet 06/11/17 Following Prescrptions Were Given to Patient: Albuterol Inhaler [Ventolin Hfa] 1 - 2 puff INHALATION Q4H PRN PRN #1 inhaler PRN Reason: Shortness Of Breath Amox/Clav 400mg/5ml Susp [Augmentin Suspension 400mg/5ml] 400 mg PO BIDCM 5 Days po.syringe Primary Care Physician: Rhoda Madera MD [Primary Care Provider] - Please follow up with your Primary Care Physician in: 1-2 Weeks Please Follow Up With: Segun Ramirez MD When: Next week, as scheduled Please Follow Up With: Edgar Galvin MD When: Next week, as scheduled Disposition: Home Minutes spent on discharge:: 35 Patient Condition:: Stable Meaningful Use Info Meaningful Use Diagnoses (Choose all that apply): None applicable
--- NOTE | 2017-06-11 11:47 | DS.PCM_ITS ---
Discharge Date and Diagnosis Date of Admission: 06/08/17 Date of Discharge: 06/11/17 - Primary Discharge Diagnosis Active and Suspected Problems (Last Reviewed 06/09/17 @ 08:45 by Segun Ramirez MD) 1. Aspiration pneumonia with underlying recurrent pleural effusions, suspected to be malignant 2. Dysphasia secondary to metastatic cancer to the esophagus 3. 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 Suggest laboratory correlation. No demonstrated urinary calculi or hydronephrosis. Percutaneous biliary drain/biliary stent is in adequate position. No bile duct dilatation. Moderate amount of ascites, slightly worsened from previous CT scan. No evidence for diverticulitis or appendicitis. Electronically Signed: Eulalio Souza MD at 5:33 EST , Service support , Chest CTA 06/08/17 02:38 IMPRESSION: Normal CTA chest examination, without a demonstrated pulmonary embolism or arterial dissection. Port-A-Cath is in adequate position, with its tip in the SVC-right atrial junction. Large bilateral pleural effusions, with interval worsening from May 29 exam, and with overlying atelectasis in the lower lobes. Right upper lobe and right middle lobe pneumonia and atelectasis, not significant change from May 29 exam. Electronically Signed: Eulalio Souza MD at 5:21 EST , Service support , Chest X-Ray 01/23/18 05:00 IMPRESSION: There has been improved aeration of both lungs. Blunting of both costophrenic angles. Electronically Signed: Brooks Simms MD at 7:54 EST Tel [phone], Service support , Dr. Galvin- Oncology Dr. Ramirez- Surgery Operations: None Procedures: - - Right ultrasound-guided tunneled pleural Pleurx catheter placement, failed PEG tube placement Summary of Care Provided: Patient is a 51-year-old male admitted 06/08/2017 due to upper abdominal pain. 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 Patient was recently at [facility] for an ERCP which was canceled due to endoscopy which revealed metastatic cancer to the esophagus. 1. Aspiration pneumonia-underlying recurrent pleural effusions, suspected to be malignant. Patient had recent thoracentesis X2 with atypical squamous cells noted. Patient underwent Pleurx catheter insertion to the right pleural space for drainage of malignant pleural effusion 06/10/[address] Bull. Patient is afebrile. No leukocytosis. He will follow-up with Dr. Bull next week, to be scheduled prior to discharge. He will continue Augmentin twice daily for 5 more days at discharge. Sputum culture showing presumptive C albicans. Patient does not appear to have oral yeast overgrowth. Respiratory panel negative. Patient was tested for home oxygen prior to discharge and oxygen was stable on room air at rest and with ambulation. 2. Dysphasia secondary to recent diagnosis of metastatic cancer to the esophagus-PEG tube placement was attempted 06/10/2017 which cannot be completed due to an obstruction from the metastatic squamous cell cancer to the distal esophagus at 30 cm. Options were discussed with oncology. Oncology feels that patient will benefit from chemotherapy as soon as possible. No further J-tube via PEG tube was found to be appropriate at this time per oncology. 3. Recent diagnosis metastatic head and neck cancer-previously diagnosed in 2014 with tongue cancer and now recurrence in the esophagus. Patient is following with Dr. Galvin and will start chemotherapy this 06/12/2017. 4. Ascites-again, suspect malignant. Patient may require diagnostic and therapeutic paracentesis in the future. Patient will follow up with Dr. Bull as outpatient per 5. Bipolar disorder-continue home regimen. 6. Hypothyroidism-continue home Synthroid regimen. 7. Type 2 diabetes mellitus-recent hemoglobin A1c 06/08/2017 5.3%. 8. Former tobacco abuse-encourage continued cessation. 9. Normochromic normocytic anemia-stable. General: Alert, Oriented x3, Cooperative, No apparent distress HEENT: Atraumatic, PERRLA, EOMI, Normocephalic Neck: Supple, No JVD, Negative Carotid Bruits Lungs: Diminished, Wheezes Cardiovascular: Regular rate, Regular Rhythm, Normal S1, Normal S2, No murmurs Abdomen: Bowel Sounds Present, Soft, Non Tender, Distended Extremities: No clubbing, No cyanosis, No edema, Capillary Refill Less than 3 Seconds Skin: No rashes, No breakdown Musculoskeletal: No Tenderness to Palpation of Joints or Extremities Neurological: Cranial nerves II-XII grossly intact, Neuro grossly intact Psych/Mental Status: Normal Affect, Appropriate Patient seen and examined prior to discharge. Physical assessment as noted above. Patient is stable for discharge at this time with the follow-up recommendations as noted above. This patient was seen by BRYSON Lundberg under the supervision of Dr. White. Discharge Diet: Soft diet Discharge Activity: Return to Normal Activity Call your doctor if you observe: Fever of 101 or Higher, Shortness of breath, Dizziness, Fainting spells, Chest pain Home Medications: Medications to take at Discharge Citalopram [Celexa] 20 mg PO DAILY 09/20/14 Levothyroxine [Synthroid] 125 mcg PO DAILY 09/20/14 Quetiapine Fumarate [Seroquel] 200 mg PO QHS 08/15/16 Oxcarbazepine [Trileptal] 300 mg PO BID 02/14/17 Amlodipine [Norvasc] 10 mg PO DAILY #30 tab 05/01/17 Dexamethasone [Decadron] 4 mg PO DAILY@0800 #30 tab 05/14/17 Bisacodyl [Dulcolax] 10 mg RECTAL DAILY PRN PRN 05/29/17 Docusate Sodium [Stool Softener] 100 mg PO BID PRN PRN 05/29/17 Enoxaparin [Lovenox] 80 mg SQ BID 05/29/17 Lidocaine/Prilocaine [Lidocaine-Prilocaine Cream] 30 gm TP DAILY PRN PRN #1 cream..g. 06/05/17 [place] Citrate [[place]] 5 ml PO DAILY 06/06/17 Oxycodone HCl/Acetaminophen [Percocet 5-325] 1 - 2 tab PO Q4H PRN PRN #30 tab Paliperidone [Paliperidone ER] 1.5 mg PO DAILY 06/08/17 Pantoprazole Sodium [Protonix] 40 mg PO DAILY 06/08/17 Albuterol Inhaler [Ventolin Hfa] 1 - 2 puff INHALATION Q4H PRN PRN #1 inhaler Amox/Clav 400mg/5ml Susp [Augmentin Suspension 400mg/5ml] 400 mg PO BIDCM 5 Days po.syringe 06/11/17 Dexamethasone [Decadron] 4 mg PO DAILY@0800 #0 tablet 06/11/17 Following Prescrptions Were Given to Patient: Albuterol Inhaler [Ventolin Hfa] 1 - 2 puff INHALATION Q4H PRN PRN #1 inhaler PRN Reason: Shortness Of Breath Amox/Clav 400mg/5ml Susp [Augmentin Suspension 400mg/5ml] 400 mg PO BIDCM 5 Days po.syringe Primary Care Physician: Rhoda Madera MD [Primary Care Provider] - Please follow up with your Primary Care Physician in: 1-2 Weeks Please Follow Up With: Segun Ramirez MD When: Next week, as scheduled Please Follow Up With: Edgar Galvin MD When: Next week, as scheduled Disposition: Home Minutes spent on discharge:: 35 Patient Condition:: Stable Meaningful Use Info Meaningful Use Diagnoses (Choose all that apply): None applicable
--- NOTE | 2017-06-11 14:30 | NURSING ---
DR BAUMAN IN ROOM SPEAKING WITH FAMILY ABOUT PLAN AT HOME, AWARE LEFT PORT IN FOR CHEMO TOMORROW. DR BAUMAN SPOKE TO TOSHA DOESN'T WANT PATIENT TO TAKE A SHOWER UNTIL SEES HIM IN OFFICE ON SATURDAY. PATIENT INSTRUCTED ON A SOFT DIET AND MAKE SURE CUTS FOOD INTO SMALL PIECES. PATIENT AND DENIES ANY QUESTIONS AT THIS TIME. INSTRUCTED TO BRING IN CONTAINER THEY WERE GIVEN TO OFFICE. PATIENT AMBULATING IN ROOM WITHOUT DIFFICULTY.
== END 2017-06-11 14:40 | disposition home or self-care (01) | DRG 178 ==
LOC: ED 06:26 → PCU 07:35
PROVIDERS: Family Medicine; Nurse Practitioner Family; Surgery; Admitting Provider Internal Medicine; Emergency Provider Emergency Medicine; Family Provider Family Medicine; PCP Family Medicine; Visit Provider Internal Medicine
PROC: 0W9930Z Drainage of Right Pleural Cavity with Drainage Device, Percutaneous Approach (ICD-10-PCS; CPT 32550; principal; 2017-06-10 07:30)
PROC: 0DJ08ZZ Inspection of Upper Intestinal Tract, Via Natural or Artificial Opening Endoscopic (ICD-10-PCS; CPT 43235; principal; 2017-06-10 11:55)
DX: J69.0 Pneumonitis due to inhalation of food and vomit (principal); E87.1 Hypo-osmolality and hyponatremia; R18.0 Malignant ascites; J91.0 Malignant pleural effusion; C78.89 Secondary malignant neoplasm of other digestive organs; R18.8 Other ascites; K22.2 Esophageal obstruction; R13.10 Dysphagia, unspecified; D63.0 Anemia in neoplastic disease; E11.9 Type 2 diabetes mellitus without complications; E03.9 Hypothyroidism, unspecified; F31.9 Bipolar disorder, unspecified; Z79.899 Other long term (current) drug therapy; Z87.891 Personal history of nicotine dependence; Z85.810 Personal history of malignant neoplasm of tongue; Z92.3 Personal history of irradiation; Z92.21 Personal history of antineoplastic chemotherapy
CPT/HCPCS: 36415; 71045; 71275; 74176; 77001; 80048; 80053; 80076; 80178; 80202; 81001; 82140; 82962; 83036; 83690; 83735; 84100; 84484; 85025; 85027; 85610; 85730; 87070; 87086; 87205; 87449; 87633; 87641; 92526; 93005; 94640; 94667; 94668; 97802; 99283; J7030; J7050; J7120; Q9967; A4216; C1729; C1788; J2405

== ENCOUNTER 2017-06-15 13:27 | Emergency (ER) | payer MEDICARE, SELFPAY ==
[2017-06-15 13:28] VITALS: BP 140/108; PULSE 106; RESP 16; TEMP 36.8; O2SAT 96; BMI 22.8
[2017-06-15] MEDS: Ondansetron 4 MG/2 ML Vial IV (14:25)
[2017-06-15] MEDS: 0.9% Normal Saline 1,000 ML 1000 ML IV (14:25)
[2017-06-15 14:53] LABS: ALB/GLOB Ratio 0.5 RATIO (0.9-2.4); AST(SGOT) 18 U/L (15-37); Alanine Aminotransfer ALT/SGPT 22 U/L (12-78); Albumin, Serum 1.9 g/dL (3.4-5.0); Alkaline Phosphatase 172 U/L (45-117); Anion Gap 8 (5-15); BUN 9 mg/dL (7-18); BUN/Creat Ratio 12.7 RATIO (10-20); Calcium,Total 8.2 mg/dL (8.5-10.1); Chloride 104 mmol/L (98-107); Creatinine, Serum 0.71 mg/dL (0.70-1.30); EST Glomerular Filtration Rate 124 mL/min (>60); Est Glom Filt Rate - Afr Amer 150 mL/min (>60); Estimated Creatinine Clearance 118.46 ml/min; Globulin 3.9 g/dL (2.2-4.2); Glucose 163 mg/dL (70-110); Lipase 538 U/L (73-393); Potassium 3.5 mmol/L (3.5-5.1); Protein, Total 5.8 g/dL (6.4-8.2); Sodium Level 139 mmol/L (136-145)
[2017-06-15 15:06] LABS: Absolute Neutrophil Count 8.1 X10^3/uL (2.0-7.7); Basophil# 0.01 X10^3/uL; Basophil% 0.1 % (0-1); Eosinophil# 0.04 X10^3/uL; Eosinophils% 0.5 % (0-5); Hematocrit 30.3 % (40-54); Hemoglobin 9.8 g/dl (13.0-16.5); Lymphocyte % 2.4 % (19-41); Mean Corp Hgb Conc 32.3 g/gl (32-36); Mean Corpuscular Volume 86.6 fL (80-94); Mean Platelet Vol. 10.9 fl (6.2-12.0); Monocyte# 0.07 X10^3/uL; Monocyte% 0.8 % (0-10); Neutrophil # 8.14 X10^3/uL (2.7-7.7); Neutrophil % 96.1 % (47-70); Platelet Count 184 K/mm3 (150-450); RBC Distribution Width CV 15.5 % (11.6-14.6); RBC Distribution Width SD 49.3 fl (35.1-43.9); White Blood Count 8.5 K/mm3 (4.4-11.0)
[2017-06-15 15:11] LABS: POSITIVE COUNT NO; POSITIVE DIFFERENTIAL YES; POSITIVE MORPHOLOGY NO
[2017-06-15 15:12] LABS: Differential Indicated SCAN CRITERIA MET
[2017-06-15] MEDS: HYDROmorphone 1 MG/ML Syringe IV (15:15)
[2017-06-15 15:35] LABS: Differential Comment SCANNED
[2017-06-15 15:42] VITALS: BP 145/89; PULSE 100; RESP 18; O2SAT 94
--- NOTE | 2017-06-15 15:54 | ED.DCSUM_ITS ---
- ER Visit Summary Date of Service: 06/15/17 Chief Complaint: [And vomiting] History of Present Illness: The patient is a 51 M [presents the emergency department with complaint of nausea and vomiting since yesterday. Patient generally does not feel well. Patient complains of abdominal pain. Patient with history of esophageal cancer with bilateral pleural effusions that are believed to be malignant as well as history of recently diagnosed pulmonary emboli. Patient has been having abdominal pain for weeks. He is currently receiving chemotherapy and his last chemotherapy doses were 3 days ago. Patient denies any fevers. Patient denies any diarrhea. Patient denies urinary symptoms. Patient also has a history of hypothyroidism and bipolar disorder.] Physical Examination: [HEENT-PERRLA, EOMI. Cranial nerves II through XII grossly intact. TMs clear. Mucous membranes dry. No adenopathy. Cardiovascular-regular and tachycardic. No murmurs auscultated. Lungs-clear to auscultation, chest wall stable without crepitus or subcu emphysema. Pleural catheter noted from right chest. Abdomen-normoactive bowel sounds. Tender diffusely to palpation. Patient has ecchymosis and bruising noted to the lower abdomen from his Lovenox injections. Patient has a biliary drain from the right upper abdomen noted. Extremities-intact ?4, normal range of motion, normal pulses, atraumatic] Test Results: [CBC with differential showed a white blood cell count of 8.5, hemoglobin 9.8, hematocrit 30, platelets 24. Chemistries were unremarkable. Total bili was 0.5, alk phos 172, lipase 538. Serum level pending. Urinalysis pending.] Emergency Department Course and Treatment: [Patient received a liter normal same fluid bolus and was given Dilaudid and Zofran.] Treatment Plan: [Patient case was discussed with Dr. Nunez and Dr. Dane White. Dr. White patient well as he recently admitted the patient and is familiar with this case. During last week's admission of the patient apparently Dr. Segun Lott attempted to do an EGD and was unable to pass the scope into the stomach as there was thought of placing a PEG tube to help keep patient hydrated as he was having difficulty time swallowing including liquids. At this point I was asked to transfer patient to [facility] where they can further evaluate possibly facing a J-tube.] Disposition: [Transfer] Impression: Esophageal cancer with esophageal stricture/obstruction Intractable nausea and vomiting Abdominal pain Pancytopenia [] This note was generated with [employer] dictation software. It may contain incorrect words, spelling, and punctuation that were not noted in review of the chart prior to signing ED Disposition - Plan for ED Patient: Chief Complaint: Nausea/Vomiting Referrals: Rhoda Madera MD [Primary Care Provider] -
[2017-06-15 16:16] LABS: Bacteria 0 SEEN /hpf (None Seen); Mucous, Urine 0 SEEN /hpf (<or=2+); Red Blood Cells-Urine 0 SEEN /hpf (0-5); Squamous Epithelial Cells - UA 0 SEEN /hpf (0-5); White Blood Cells 0 SEEN /hpf (0-5)
[2017-06-15 16:18] LABS: Color, Urine Yellow (Yellow); Glucose, Dipstick Normal (Normal); Ketone-Dipstick Negative (Negative); Leukocyte Esterase-Dipstick Negative /ul (Negative); Nitrite-Dipstick Negative (Negative); Occult Blood-Urine Negative /ul (Negative); Protein-Dipstick Negative (Negative); Specific Gravity, Urine 1.015 (1.002-1.030); Urine Bilirubin Dipstick Negative (Negative); Urine Clarity Sl. Cloudy (Clear); Urine Urobilinogen Normal (Normal)
[2017-06-15 16:18] LABS: Lithium < 0.20 mmol/L (0.60-1.20)
[2017-06-15 17:01] VITALS: RESP 18
[2017-06-15 17:02] VITALS: PULSE 100; RESP 18
== END 2017-06-15 17:07 | disposition short-term general hospital (02) ==
PROVIDERS: Emergency Provider Emergency Medicine; Family Provider Family Medicine; PCP Family Medicine
DX: R11.2 Nausea with vomiting, unspecified (principal); R10.84 Generalized abdominal pain; K22.2 Esophageal obstruction; C15.9 Malignant neoplasm of esophagus, unspecified; J91.0 Malignant pleural effusion; D61.818 Other pancytopenia; E03.9 Hypothyroidism, unspecified; F31.9 Bipolar disorder, unspecified; Z86.711 Personal history of pulmonary embolism; Z79.51 Long term (current) use of inhaled steroids; Z79.899 Other long term (current) drug therapy
CPT/HCPCS: 36591; 80053; 80178; 81001; 83690; 85025; 96361; 96374; 96375; 99283; J7030; A4216; J2405